=== PATIENT | male | born 1955 | race Caucasian/White ===

== ENCOUNTER → 2023-07-27 12:51 | Outpatient (REF) | payer MEDICARE, OTHER, SELFPAY | LOC: RAD 12:51 | PROVIDERS: ATTENDING PHYSICIAN Surgery Vascular Surgery; FAMILY PHYSICIAN Family Medicine | DX: I73.9 Peripheral vascular disease, unspecified (principal) | CPT/HCPCS: 93922; 93925 ==

== ENCOUNTER → 2023-12-06 08:39 | Outpatient (REF) | payer MEDICARE, OTHER, SELFPAY ==
[2023-12-06 11:08] LABS: % Basophils 0.6 % (0-2); % Eosinophils 1.8 % (0-6); % Immature Granulocytes 0.9 % (0-0.5); % Lymphocytes 18.5 % (20.5-51.1); % Monocytes 11.1 % (1.7-9.3); % Neutrophils 67.1 % (42.2-75.2); Absolute Basophils 0.1 10^3/uL (0-0.2); Absolute Eosinophils 0.2 10^3/uL (0-0.7); Absolute Immature Granulocytes 0.1 10^3/uL (0-0.05); Absolute Lymphocytes 1.6 10^3/uL (1.2-3.4); Absolute Neutrophils 5.8 10^3/uL (1.4-6.5); Hematocrit 42.9 % (39.0-52.0); Hemoglobin 14.5 g/dL (13.0-18.0); Mean Corp Hgb Conc. 33.8 g/dL (33.0-37.0); Mean Corpuscular Hgb 28.2 pg (27.0-31.0); Mean Corpuscular Volume 83.5 fL (80.0-94.0); Nucleated Red Blood Cells % 0 % (-); Platelet Count 264 10^3/uL (130-400); Red Blood Cell Count 5.14 10^6/uL (4.70-6.10); Red Cell Dist. Width 13.6 % (11.5-14.5); White Blood Cell Count 8.7 10^3/uL (4.8-10.8)
[2023-12-06 11:34] LABS: Blood Urea Nitrogen 16 mg/dl (9-20); Calcium 9.6 mg/dl (8.4-10.2); Carbon Dioxide 27 mmol/L (22-30); Chloride 99 mmol/L (98-107); Glucose 151 mg/dl (70-99); Potassium 4.7 mmol/L (3.5-5.1); Sodium 140 mmol/L (135-145); eGFR > 60.00
== END ==
LOC: SDSPAT 08:39
PROVIDERS: ATTENDING PHYSICIAN Podiatrist Foot & Ankle Surgery; FAMILY PHYSICIAN Family Medicine
DX: Z01.818 Encounter for other preprocedural examination (principal)
CPT/HCPCS: 36415; 73620; 80048; 85025; 93005

== ENCOUNTER 2023-12-08 06:53 | Day surgery (SDC) | payer MEDICARE, OTHER, SELFPAY ==
[2023-12-06 09:43] VITALS: BMI 31.5
[2023-12-08] VITALS (9 sets, daily range): BP systolic 117–142; BP diastolic 65–73; BMI 31.5
[2023-12-08 11:45] LABS: Glucose - Point of Care 190 mg/dl (70-99)
[2023-12-08] MEDS: NORMOSOL-R/PLASMALYTE-A 1000 IV (11:54)
--- NOTE | 2023-12-08 13:00 | W.SUR.POST ---
Surgical Immediate Post Op
Note
Pre Op Diagnosis: Right 3rd toe osteomyelitis
Post Op Diagnosis: Same as above
Procedure Performed: Rt partial 3rd toe amputation
Primary Surgeon: Dr. Rm DPM
Secondary Surgeons: None
Anesthesia: MAC with local block
Estimated Blood Loss: 2cc's
Fluids: None
Drains/Shunts: No
Specimens/Cultures: Aerobic and anaerobic cultures sent, Rt 3rd toe bone sent for pathology along with clean margins
Doppler/Duplex/Angio (Y/N): No
Complications: None
Operative Findings: There was decent blood flow to the surgical margins noted, no deep tissue purulence noted.
Patient stable in PACU with stable vital signs and intact vascular status to Rt foot,
PT will be discharged home when stable
[2023-12-08 13:01] LABS: Glucose - Point of Care 182 mg/dl (70-99)
== END 2023-12-08 14:11 | disposition home or self-care (01) ==
LOC: SDS 06:53
PROVIDERS: ATTENDING PHYSICIAN Podiatrist Foot & Ankle Surgery; FAMILY PHYSICIAN Family Medicine
DX: M86.9 Osteomyelitis, unspecified (principal)
CPT/HCPCS: 28825; 88304; 88305; 88311; 82962; 87070; 87075; 87076; 87077; 87186; 87205

== ENCOUNTER → 2023-12-27 09:16 | Outpatient (REF) | payer MEDICARE, OTHER, SELFPAY ==
[2023-12-27 11:06] LABS: Hematocrit 42.4 % (39.0-52.0); Hemoglobin 14.2 g/dL (13.0-18.0); Mean Corp Hgb Conc. 33.5 g/dL (33.0-37.0); Mean Corpuscular Hgb 28.7 pg (27.0-31.0); Mean Corpuscular Volume 85.8 fL (80.0-94.0); Mean Platelet Volume 9.4 fL (7.4-10.4); Platelet Count 220 10^3/uL (130-400); Red Blood Cell Count 4.94 10^6/uL (4.70-6.10); Red Cell Dist. Width 13.8 % (11.5-14.5); White Blood Cell Count 8.5 10^3/uL (4.8-10.8)
[2023-12-27 11:26] LABS: Blood Urea Nitrogen 18 mg/dl (9-20); Calcium 9.7 mg/dl (8.4-10.2); Carbon Dioxide 27 mmol/L (22-30); Chloride 101 mmol/L (98-107); Glucose 173 mg/dl (70-99); Potassium 4.9 mmol/L (3.5-5.1); Sodium 139 mmol/L (135-145); eGFR > 60.00
== END ==
LOC: SDSPAT 09:16
PROVIDERS: ATTENDING PHYSICIAN Podiatrist Foot & Ankle Surgery; FAMILY PHYSICIAN Family Medicine
DX: Z01.818 Encounter for other preprocedural examination (principal)
CPT/HCPCS: 36415; 73620; 80048; 85027

== ENCOUNTER 2023-12-29 06:32 | Day surgery (SDC) | payer MEDICARE, OTHER, SELFPAY ==
[2023-12-27 10:29] VITALS: BMI 32.9
[2023-12-29 11:07] VITALS: BP 119/73
[2023-12-29 11:12] VITALS: BMI 32.9
[2023-12-29 11:18] LABS: Glucose - Point of Care 141 mg/dl (70-99)
[2023-12-29 13:28] VITALS: BP 97/59
[2023-12-29 13:30] VITALS: BP 97/66
[2023-12-29 13:45] VITALS: BP 107/77
--- NOTE | 2023-12-29 13:54 | W.SUR.POST ---
Surgical Immediate Post Op
Note
Pre Op Diagnosis: Rt 3rd toe osteomyelitis
Post Op Diagnosis: Same as above
Procedure Performed: Right 3rd toe proximal amputation att he MPJ level
Primary Surgeon: Leisa Rm DPM
Secondary Surgeons: None
Anesthesia: MAC with local block
Estimated Blood Loss:10 CC'S
Fluids: None
Drains/Shunts: none
Specimens/Cultures: Bone form Rt 3rd toe proximal phalanx sent for pathology and culture
Doppler/Duplex/Angio (Y/N): None
Complications: none
Operative Findings: No deep tissue purulence noted
PT stable in recovery with intact vascular status to Rt foot and stbale vital signs
[2023-12-29 14:00] VITALS: BP 113/71
== END 2023-12-29 14:21 | disposition home or self-care (01) ==
LOC: SDS 06:32
PROVIDERS: ATTENDING PHYSICIAN Podiatrist Foot & Ankle Surgery
DX: M86.9 Osteomyelitis, unspecified (principal); M86.171 Other acute osteomyelitis, right ankle and foot
CPT/HCPCS: 28820; 88304; 88311; 82962

== ENCOUNTER → 2024-03-09 10:59 | Outpatient (REF) | payer MEDICARE, OTHER, SELFPAY | LOC: RAD 10:59 | PROVIDERS: ATTENDING PHYSICIAN Surgery Vascular Surgery; FAMILY PHYSICIAN Family Medicine | DX: I73.9 Peripheral vascular disease, unspecified (principal) | CPT/HCPCS: 93922; 93925 ==

== ENCOUNTER 2024-03-22 05:52 | Day surgery (SDC) | payer MEDICARE, OTHER, SELFPAY ==
[2024-03-20 09:03] VITALS: BMI 33.0
[2024-03-22] VITALS (15 sets, daily range): BP systolic 100–136; BP diastolic 61–105; BMI 32.7
[2024-03-22 06:55] LABS: Glucose - Point of Care 187 mg/dl (70-99)
--- NOTE | 2024-03-22 07:13 | W.SUR.PREOP ---
Pre-Operative Surgical Note
-
I have examined this patient prior to the performance of the scheduled procedure.
The patient's condition is unchanged from the time of the current History and
Physical and the patient is able to undergo the scheduled procedure.
Discussed extensively with patient plan for procedure (RLE agram, possible GATEKEEPER/stent, possible LLE agram). Discussed likelihood of limited revasc options RLE. Discussed if no options, potential of LimFlow revasc pending anatomy eval. Discussed
risks angiography, benefits/alternatives. He understands all and wishes to proceed.
--- NOTE | 2024-03-22 08:45 | W.SUR.POST ---
Surgical Immediate Post Op
Note
Pre Op Diagnosis: PAD
Post Op Diagnosis: PAD
Procedure Performed: Aortogram, bilateral lower extremity angiogram, angioplasty of right TP trunk
Primary Surgeon: Anand Silverio MD
Secondary Surgeons: N/A
Anesthesia: MAC
Estimated Blood Loss: 2 mL
Fluids: See anesthesia flowsheet
Drains/Shunts: N/A
Specimens/Cultures: None
Doppler/Duplex/Angio (Y/N): Y
Complications: None
Operative Findings: Successful endovascular intervention
--- NOTE | 2024-03-22 09:12 | OR.RPT ---
Operative Report
Operative Report
PROCEDURE DATE: 03/22/2024
Preoperative diagnosis:
1. Chronic limb threatening ischemia right lower extremity.
2. Concern for failing left lower extremity bypass.
Postoperative diagnosis: Same
Procedure:
1. Duplex assisted left common femoral artery cannulation.
2. Aortogram and pelvic angiogram.
3. Right lower extremity arteriogram with third order vessel catheterization of right tibioperoneal trunk via left common femoral artery puncture.
4. Balloon angioplasty of right tibioperoneal trunk with 4 mm angioplasty balloon.
5. Left lower extremity arteriogram.
6. [place] Perclose percutaneous suture closure left common femoral artery.
7. Supervision and interpretation.
Surgeon: Jean Claude
Inspecting Engineer: None
Complications: None
Anesthesia: Local, sedation
Fluoroscopy:
9.2 min
82 mGy
22.92 Gy.cm2
Indications for procedure:
Patient with nonhealing prior toe amputation site right lower extremity. History of right lower extremity bypass. This has been chronically occluded now. Limited revascularization options. Risk/benefits/alternatives of right lower extremity
angiogram with possible angioplasty/stenting all discussed. Discussed also concomitant left lower extremity diagnostic arteriogram based on screening ultrasound demonstrating very low flow in bypass graft left lower extremity. Patient understood
all wished to proceed.
Description of procedure:
Patient was identified, brought to the operating room. Placed on the table in the supine position. After the adequate administration of anesthesia, the patient was prepped and draped in the standard surgical fashion. A standard preoperative
timeout was undertaken and everybody was in agreement with the plan.
The left common femoral artery was accessed with a micropuncture kit under direct duplex ultrasound guidance. A 5 [place]rugu[place] sheath was then advanced over a 0.035 inch wire, and a andujar's hook catheter was advanced into the abdominal aorta.
Aortogram and pelvic angiogram was obtained. Findings as follows:
Infrarenal aorta: Patent with no significant stenosis
Right common iliac artery: Patent with no significant stenosis
Right external iliac artery:Patent with no significant stenosis
Left common iliac artery:Patent with no significant stenosis
Left external iliac artery:Patent with no significant stenosis
Using a floppy angled hydrophilic wire, the right common femoral artery was cannulated and the catheter was advanced. Right lower extremity arteriogram was obtained. Findings as follows:
Common femoral artery: Patent with no significant stenosis.
Profunda femoris artery: Patent with no significant stenosis though relatively weak collateralization in general.
Superficial femoral artery: Patent with mild luminal irregularities but no significant stenosis throughout its course. At the very distal superficial femoral artery the number of the old bypass graft could be seen but the bypass was chronically
occluded.
Popliteal artery: Patent with luminal irregularities but no definitive stenosis.
Anterior tibial artery: Occluded chronically
Tibial peroneal trunk: Patent with severe stenosis at its origin, string-like. The peroneal and posterior tibial arteries were occluded chronically. Robust collateralization was seen throughout the calf suggestive of chronic occlusive disease.
Most of these collaterals emanated from distal to the TP trunk.
There was a reconstituted collateral that was in proximity to the dorsalis pedis on the foot which primarily filled the foot. Could not definitively say this was not a slightly aberrant course of a dorsalis pedis.
At this point, I felt that there was not really great options here for revascularization, but given the robust collaterals from the TP trunk and its branches, I felt that potentially treating that severe stenosis may enhance flow through collaterals
to assist with potential healing. Therefore at this point I selectively cannulated the superficial femoral artery and then exchanged for an up and over a 5 [place] 70 cm sheath. The patient was given 6000 units of intravenous heparin. Then under
roadmap assisted guidance I used a flopping of hydrophilic wire and a CXI catheter was able to traverse the area of stenosis. I gained wire access into what was likely the origin of the posterior tibial artery. Next I used a 4 mm x 4 cm
angioplasty balloon and performed angioplasty of the stenosis. Completion angiogram demonstrated excellent result with no significant residual stenosis and good filling into the collaterals. At this point I felt that there is nothing else to
render endovascularly here. I withdrew my sheath to the left distal external iliac artery. Left femoral angiogram demonstrated good puncture in the left common femoral artery. The common femoral, profunda appeared patent with no definitive
stenosis. Superficial femoral artery had luminal irregularities but no significant stenoses. Some areas of plaque in the above-knee popliteal and behind knee popliteal artery resulted in may be mild stenoses but difficult to say exactly the degree
of stenosis. Below the knee the below-knee popliteal artery appeared to occlude. On delayed phase imaging there was reconstituted flow seen into an anterior tibial artery and there appeared to be a bypass that emanated from the anterior tibial
artery to the dorsalis pedis it looks like. There was flow into this despite a proximal occlusion in the inflow (in the anterior tibial artery proximally). No additional outflow was really seen in the calf or ankle. Possible weak filling of a
posterior tibial artery around the ankle was seen but could not definitively say this was not a collateral. At this point, I used a [employer] percutaneous Perclose suture delivery device after exchanging out the sheath to close the common femoral
artery. Gentle pressure was also applied. Hemostasis was fully achieved. The patient tolerated procedure well.
== END 2024-03-22 11:56 | disposition home or self-care (01) ==
LOC: CATH 05:52
PROVIDERS: ATTENDING PHYSICIAN Surgery Vascular Surgery; FAMILY PHYSICIAN Family Medicine
DX: I70.221 Atherosclerosis of native arteries of extremities with rest pain, right leg (principal); Z89.421 Acquired absence of other right toe(s); E11.9 Type 2 diabetes mellitus without complications; E78.5 Hyperlipidemia, unspecified; M72.2 Plantar fascial fibromatosis; Z79.4 Long term (current) use of insulin; Z79.899 Other long term (current) drug therapy; Z79.82 Long term (current) use of aspirin; Z79.84 Long term (current) use of oral hypoglycemic drugs; Z79.01 Long term (current) use of anticoagulants
CPT/HCPCS: 37228; 75625; 75716; 82962; C1725; C1760; C1769; C1894; Q9967

== ENCOUNTER → 2024-04-23 08:54 | Outpatient (REF) | payer MEDICARE, OTHER, SELFPAY | LOC: RAD 08:54 | PROVIDERS: ATTENDING PHYSICIAN Surgery Vascular Surgery; FAMILY PHYSICIAN Family Medicine | DX: I73.9 Peripheral vascular disease, unspecified (principal) | CPT/HCPCS: 93922; 93925 ==

== ENCOUNTER 2024-05-16 05:53 | Day surgery (SDC) | payer MEDICARE, OTHER, SELFPAY ==
[2024-05-16] VITALS (13 sets, daily range): BP systolic 14–135; BP diastolic 63–80; BMI 31.9
--- NOTE | 2024-05-16 06:35 | W.SUR.PREOP ---
Pre-Operative Surgical Note
-
I have examined this patient prior to the performance of the scheduled procedure.
The patient's condition is unchanged from the time of the current History and
Physical and the patient is able to undergo the scheduled procedure.
[2024-05-16] MEDS: NSS 500 IV (06:50)
[2024-05-16 07:11] LABS: Hematocrit 42.2 % (39.0-52.0); Hemoglobin 14.3 g/dL (13.0-18.0); Mean Corp Hgb Conc. 33.9 g/dL (33.0-37.0); Mean Corpuscular Hgb 28.1 pg (27.0-31.0); Mean Corpuscular Volume 82.9 fL (80.0-94.0); Mean Platelet Volume 8.7 fL (7.4-10.4); Platelet Count 236 10^3/uL (130-400); Red Blood Cell Count 5.09 10^6/uL (4.70-6.10); Red Cell Dist. Width 14.4 % (11.5-14.5)
[2024-05-16 07:24] LABS: Blood Urea Nitrogen 16 mg/dl (9-20); Calcium 9.2 mg/dl (8.4-10.2); Carbon Dioxide 29 mmol/L (22-30); Chloride 103 mmol/L (98-107); Estimated Creatinine Clearance 110 ml/min; Glucose 191 mg/dl (70-99); INR 1.06; PT 14.1 Sec (11.4-14.6); Potassium 4.5 mmol/L (3.5-5.1); Sodium 137 mmol/L (135-145); eGFR > 60.00
[2024-05-16 07:25] LABS: APTT 28.3 Sec (23.4-35.0)
--- NOTE | 2024-05-16 08:58 | W.SUR.POST ---
Surgical Immediate Post Op
Note
Pre Op Diagnosis: Gangrene
Post Op Diagnosis: Same
Procedure Performed: Left lower extremity diagnostic arteriogram
Primary Surgeon: Jean Claude
Anesthesia: Local and sedation
Estimated Blood Loss: Less than 2 cc
Fluids: See anesthesia flowsheet
Drains/Shunts: None
Specimens/Cultures: None
Doppler/Duplex/Angio (Y/N): Y
Complications: None
Operative Findings: No endovascular options
[2024-05-16 09:37] LABS: Glucose - Point of Care 186 mg/dl (70-99)
[2024-05-16] MEDS: NSS 1000 IV (09:58)
--- NOTE | 2024-05-16 10:12 | OR.RPT ---
Operative Report
Operative Report
PROCEDURE DATE: 05/16/2024
Preoperative diagnosis:
1. Chronic limb threatening ischemia left lower extremity with gangrene left second toe.
2. History of left lower extremity arterial bypass.
Postoperative diagnosis: Same
Procedure:
1. Duplex assisted right common femoral artery cannulation.
2. Aortogram and pelvic angiogram.
3. Left lower extremity arteriogram with third order vessel catheterization of left popliteal artery via right common femoral artery puncture.
4. Supervision and interpretation.
Surgeon: Jean Claude
Breakfast Hostess: None
Complications: None
Anesthesia: Local, sedation
Fluoroscopy:
12.3 min
116 mGy
35.21 Gy.cm2
Indications for procedure:
History of chronic peripheral arterial disease. Prior bypass to (infrapopliteal, prior to my meeting him). Recent imaging had demonstrated occlusion of the anterior tibial artery proximal to the bypass origin. Had gangrene in the left foot.
Therefore brought for angiography. Risk/benefit/alternatives also discussed. Patient understood all wished to proceed.
Description of procedure:
Patient was identified, brought to the operating room. Placed on the table in the supine position. After the adequate administration of anesthesia, the patient was prepped and draped in the standard surgical fashion. A standard preoperative
timeout was undertaken and everybody was in agreement with the plan.
The right common femoral artery was accessed with a micropuncture kit under direct duplex ultrasound guidance. A 5 Sammarinese sheath was then advanced over a 0.035 inch wire, and a andujar's hook catheter was advanced into the abdominal aorta.
Aortogram and pelvic angiogram was obtained. Findings as follows:
Infrarenal aorta: Patent with no significant stenosis
Right common iliac artery: Patent with no significant stenosis
Right external iliac artery: Patent with no significant stenosis
Left common iliac artery: Patent with no significant stenosis
Left external iliac artery: Patent with no significant stenosis
Using a floppy angled hydrophilic wire, the left common femoral artery was cannulated and the catheter was advanced. Left lower extremity arteriogram was obtained. Findings as follows:
Common femoral artery: Patent with no significant stenosis
Profunda femoris artery: Patent with no significant stenosis
Superficial femoral artery: Patent with mild luminal irregularity proximally but no significant stenosis. In the mid segment, luminal irregularities are noted, but no severe stenosis in the proximal third. At the midpoint of the SFA there is a
focal plaque with likely moderate stenosis. In the distal SFA just proximal to emerging from the adductor canal, there is a heavy plaque likely resulting in a moderate to severe stenosis.
Popliteal artery: Patent with heavy bulky plaque behind the knee resulting likely in a moderate to high-grade stenosis. There is a bulky plaque that extends from the below-knee popliteal artery into the tibioperoneal trunk. The anterior tibial
artery origin is occluded.
Anterior tibial artery: Occluded at the origin. About 2 to 3 cm beyond the origin there is reconstitution. About 8 to 10 cm beyond there there is a mild stenosis but nothing severe. Patent bypass originating from the mid anterior tibial artery.
Patent distal anastomosis but relatively poor runoff in the dorsalis pedis. Very diseased dorsalis pedis infra malleoli or runoff. Pedal arch could be seen but weakly filling.
Tibial peroneal trunk: Severe bulky plaque originating in the popliteal artery spilling into the tibioperoneal trunk causing near occlusion proximally. Otherwise the tibioperoneal trunk is patent beyond there with luminal irregularities, but both
the peroneal and posterior tibial arteries are occluded.
At this point, I gained selective access into the left superficial femoral artery with a flopping of hydrophilic wire and then exchanged for a Stor[employer] wire and then up and over 6 Sammarinese sheath. The patient was given 7000 units of intravenous heparin.
Next under roadmap assisted guidance using a flopping of hydrophilic wire and a CXI catheter was able to traverse through the popliteal artery stenosis, but proved to be difficult due to the bulkiness of the plaque. I was able to however
successfully traverse and then gain access into the below the knee popliteal artery. Under roadmap assisted guidance I tried to engage the origin of the anterior tibial artery, but despite multiple attempts I could not get into the anterior tibial
artery due to the bulkiness of the proximal plaque. At this point I felt that there is no further endovascular interventions to render. I did not feel that retrograde access would be ideal given the bulkiness of this plaque, and the risk for
occluding the single distal runoff vessel/bypass. At this point my sheath was withdrawn to the right distal external iliac artery. Femoral angiogram demonstrated good puncture in the right common femoral artery. Initially I tried to utilize a
percutaneous suture [place] Perclose device. However this failed. Therefore I reinserted the wire and remove the delivery device. I exchanged back for 6 Sammarinese sheath and remove the wire. Performed angiogram to confirm no injury to the artery.
Confirm no issue. At this point, the sheath was withdrawn and manual pressure was applied to the puncture site. Protamine was given to reverse the heparin. Hemostasis was fully achieved. Vein mapping will be performed to see if the patient could
potentially be a bypass candidate though due to prior vein harvest this may not be a guarantee, and given disease runoff inframalleolar may not be an ideal fix.
The patient tolerated procedure well.
[2024-05-16 13:53] LABS: Glucose - Point of Care 155 mg/dl (70-99)
--- NOTE | 2024-05-16 13:59 | PTCARENOTE ---
Pt refusing to take ordered dose of 2 units of novolog SQ for accucheck of 155. States 'my sugar will drop too low'. Pt encouraged to eat and drink something but also refusing that- states 'I'll do all of that when I get home.'
== END 2024-05-16 15:15 | disposition home or self-care (01) ==
LOC: CATH 05:53
PROVIDERS: ATTENDING PHYSICIAN Surgery Vascular Surgery; PRIMARYCARE PHYSICIAN Family Medicine
DX: I70.262 Atherosclerosis of native arteries of extremities with gangrene, left leg (principal); L97.529 Non-pressure chronic ulcer of other part of left foot with unspecified severity; Z79.82 Long term (current) use of aspirin; Z79.899 Other long term (current) drug therapy; Z79.84 Long term (current) use of oral hypoglycemic drugs; Z79.4 Long term (current) use of insulin; Z79.01 Long term (current) use of anticoagulants; E11.9 Type 2 diabetes mellitus without complications; E78.5 Hyperlipidemia, unspecified; Z98.890 Other specified postprocedural states
CPT/HCPCS: 36247; 75625; 75716; 80048; 82962; 85027; 85610; 85730; 86850; 86900; 86901; 93970; C1760; C1769; C1887; C1894; Q9967

== ENCOUNTER 2024-07-09 07:42 | Inpatient (IN) | payer MEDICARE, OTHER, SELFPAY ==
[2024-07-04 09:02] VITALS: BMI 31.6
[2024-07-04 09:49] LABS: % Basophils 0.7 % (0-2); % Eosinophils 1.9 % (0-6); % Immature Granulocytes 0.8 % (0-0.5); % Lymphocytes 15.7 % (20.5-51.1); % Monocytes 9.7 % (1.7-9.3); % Neutrophils 71.2 % (42.2-75.2); Absolute Basophils 0.1 10^3/uL (0-0.2); Absolute Eosinophils 0.2 10^3/uL (0-0.7); Absolute Immature Granulocytes 0.1 10^3/uL (0-0.05); Absolute Lymphocytes 1.4 10^3/uL (1.2-3.4); Absolute Monocytes 0.9 10^3/uL (0.1-0.6); Absolute Neutrophils 6.4 10^3/uL (1.4-6.5); Hematocrit 45.2 % (39.0-52.0); Hemoglobin 15.3 g/dL (13.0-18.0); Mean Corp Hgb Conc. 33.8 g/dL (33.0-37.0); Mean Corpuscular Hgb 28.5 pg (27.0-31.0); Mean Corpuscular Volume 84.2 fL (80.0-94.0); Mean Platelet Volume 9.2 fL (7.4-10.4); Nucleated Red Blood Cells % 0 % (-); Platelet Count 236 10^3/uL (130-400); Red Blood Cell Count 5.37 10^6/uL (4.70-6.10); Red Cell Dist. Width 14.6 % (11.5-14.5); White Blood Cell Count 8.9 10^3/uL (4.8-10.8)
[2024-07-04 09:57] LABS: INR 1.05; PT 14.2 Sec (11.4-14.6)
[2024-07-04 09:58] LABS: APTT 26.7 Sec (23.4-35.0)
[2024-07-04 10:31] LABS: Blood Urea Nitrogen 14 mg/dl (9-20); Calcium 9.5 mg/dl (8.4-10.2); Carbon Dioxide 25 mmol/L (22-30); Chloride 105 mmol/L (98-107); Estimated Creatinine Clearance 97 ml/min; Glucose 157 mg/dl (70-99); Potassium 4.6 mmol/L (3.5-5.1); Sodium 143 mmol/L (135-145); eGFR > 60.00
--- NOTE | 2024-07-05 13:06 | PTCARENOTE ---
Abnormal ECG 07/04/[address] Garcia, no further interventions requested.
[2024-07-09] VITALS (7 sets, daily range): BP systolic 122–153; BP diastolic 68–80; BMI 31.5
[2024-07-09] MEDS: PERIDEX 0.12% ORAL RINSE 15 ML PO (08:40)
[2024-07-09] MEDS: BACTROBAN NASAL 1 GRAM NASAL (08:40)
[2024-07-09 08:43] LABS: Glucose - Point of Care 187 mg/dl (70-99)
[2024-07-09 11:24] LABS: Glucose - Point of Care 174 mg/dl (70-99)
[2024-07-09 14:01] LABS: Glucose - Point of Care 205 mg/dl (70-99)
[2024-07-09 15:25] LABS: Glucose - Point of Care 151 mg/dl (70-99)
[2024-07-09 15:32] LABS: Hematocrit 41.5 % (39.0-52.0); Hemoglobin 13.8 g/dL (13.0-18.0); Mean Corp Hgb Conc. 33.3 g/dL (33.0-37.0); Mean Corpuscular Hgb 28.2 pg (27.0-31.0); Mean Corpuscular Volume 84.9 fL (80.0-94.0); Mean Platelet Volume 9.1 fL (7.4-10.4); Platelet Count 247 10^3/uL (130-400); Red Blood Cell Count 4.89 10^6/uL (4.70-6.10); Red Cell Dist. Width 14.3 % (11.5-14.5); White Blood Cell Count 19.3 10^3/uL (4.8-10.8)
[2024-07-09 15:51] LABS: Blood Urea Nitrogen 14 mg/dl (9-20); Calcium 8.1 mg/dl (8.4-10.2); Carbon Dioxide 21 mmol/L (22-30); Chloride 111 mmol/L (98-107); Estimated Creatinine Clearance 111 ml/min; Glucose 241 mg/dl (70-99); Potassium 5.3 mmol/L (3.5-5.1); Sodium 137 mmol/L (135-145); eGFR > 60.00
--- NOTE | 2024-07-09 16:02 | CON.INTV ---
Consultation
Consultation Request
Date/Time Consultation Requested: 07/09/2024 - 150
Date/Time Consultation Performed: 07/09/2024 - 153
Requesting Provider: VALARIE Gale
Performing Provider: Dr. Bueno
Reason for Consultation: Vascular surgery due to PAD
Medical History
-
Chief Complaint: Elective left lower extremity bypass graft
History of Present Illness:
69-year-old male with a past medical history of PAD, DM type II, hyperlipidemia and plantar fasciitis who presents for elective left lower extremity jump bypass graft from below�knee popliteal artery to distal anterior tibial artery bypass graft.
Patient known to vascular surgery with last visit 06/22/[address] Silverio. Given patient's significant PAD, he has risk of limb loss with gangrene. He has poor outflow from his distal bypass graft into his dorsalis pedis artery. Revascularization
with a jump bypass was recommended and patient agreed to this procedure. Today, patient underwent a left lower extremity jump bypass graft from below�knee popliteal artery to distal anterior tibial artery bypass graft. Estimated blood loss was 200
cc with no complications, and he was transferred to the ICU postoperatively with [employer] services consulted for additional management/recommendations.
When I saw the patient, he was resting in bed in no acute distress. Currently on room air breathing comfortably saturating 95% with heart rate 108 and BP 178/82 via A-line, 133/78 via NIBP. Currently denies chest pain, LING, nausea, fevers or chills.
PMHx: DM type II, hyperlipidemia, history of right leg bypass, PAD, plantar fasciitis
PSHx: Partial amputation of right hallux, right lower extremity arteriogram, right SFA to distal peroneal artery bypass with LUE cephalic vein conduit, right second toe amputation with right medial foot excision of bone, cataract surgery, right
partial fifth toe amputation, left lower extremity arteriogram + balloon angioplasty, right third toe proximal amputation
Past Medical History
Past Medical History: Other (Above as per HPI)
Past Surgical History: Other (Above as per HPI)
Social History
Tobacco: Non-smoker
Alcohol: None
Drug: None
Family History
Family History: Reviewed & Not Pertinent
Allergies / Home Medications
Allergies
Allergy/AdvReac Type Severity Reaction Status Date / Time
No Known Allergies Allergy Verified 07/09/24 08:25
Home Medications
�Medication �Instructions �Recorded �Confirmed �Last Taken �Type
aspirin 81 mg chewable tablet 81 mg PO NOON Blood clot 11/11/20 07/09/24 07/08/24 12:00 History
prevention/tx
gabapentin 300 mg capsule 300 mg PO TID Neurological 11/11/20 07/09/24 07/08/24 17:00 History
Condition
insulin lispro 100 unit/mL 40 units SC AC Diabetes 11/11/20 07/09/24 07/08/24 17:00 History
subcutaneous pen (Humalog KwikPen
(U-100) Insulin)
metoprolol succinate 25 mg 25 mg PO DAILY Heart 11/11/20 07/09/24 07/08/24 12:00 History
tablet,extended release 24 hr disease/condition
insulin glargine 100 unit/mL (3 40 units SC HS 12/22/20 07/09/24 07/08/24 21:00 History
mL) subcutaneous pen (Lantus
Solostar U-100 Insulin)
cholecalciferol (vitamin D3) 50 2,000 units PO NOON 12/24/20 07/09/24 07/08/24 12:00 History
mcg (2,000 unit) tablet
lisinopril 10 mg tablet 10 mg PO DAILY Blood pressure 11/11/21 07/09/24 07/08/24 12:00 History
ascorbic acid (vitamin C) 500 mg 500 mg PO BID 12/07/23 07/09/24 07/08/24 21:00 History
tablet (Vitamin C)
atorvastatin 80 mg tablet 80 mg PO DAILY 12/07/23 07/09/24 07/08/24 12:00 History
ezetimibe 10 mg tablet 10 mg PO DAILY 12/07/23 07/09/24 07/08/24 12:00 History
zinc acetate 50 mg (zinc) capsule 50 mg PO NOON 12/07/23 07/09/24 07/08/24 12:00 History
blood sugar diagnostic 05/16/24 07/09/24 Unknown History
pen needle, diabetic 29 gauge x 05/16/24 07/09/24 Unknown History
1/2'
metformin 1,000 mg tablet 1,000 mg PO DAILY Diabetes 07/09/24 07/09/24 07/08/24 12:00 History
Review of Systems
-
History Source: Patient
All other systems: Negative unless noted
Vitals / Labs / Diagnostic Testing
Vital Signs
Temp Pulse Resp BP Pulse Ox
97.6 F 96 17 133/78 95
07/09/24 16:56 07/09/24 17:00 07/09/24 17:00 07/09/24 16:30 07/09/24 17:00
Lab Data
07/09/24 15:25
07/09/24 15:25
Diagnostic Testing:
Physical Exam
-
HEENT: Normocephalic and Anicteric
Cardiovascular: S1/S2, Rub (n) and Peripheral Edema (n)
Respiratory: Wheeze (n), Rales (n), Rhonchi (n) and Non-Labored Respirations
GI: Soft, Non Distended, Non Tender and Normal Bowel Sounds
Neurology: AO x 3
Skin: Warm, Dry, Other (Multiple toe amputations seen on the right foot) and Other (Bandage on right upper extremity with mild oozing of blood seen in proximal RUE)
General: Respiratory Distress (n), Comfortable, Fever (n) and Chills (n)
Assessment
-
Assessment: 69-year-old male with a past medical history of PAD, DM type II, hyperlipidemia and plantar fasciitis who presents for elective left lower extremity jump bypass graft from below�knee popliteal artery to distal anterior tibial artery
bypass graft. Patient known to vascular surgery with last visit 06/22/[address] Silverio. Given patient's significant PAD, he has risk of limb loss with gangrene. He has poor outflow from his distal bypass graft into his dorsalis pedis artery.
Revascularization with a jump bypass was recommended and patient agreed to this procedure. Today, patient underwent a left lower extremity jump bypass graft from below�knee popliteal artery to distal anterior tibial artery bypass graft. Estimated
blood loss was 200 cc with no complications, and he was transferred to the ICU postoperatively with [employer] services consulted for additional management/recommendations.
Chronic conditions [employer]: DM type II, hyperlipidemia, history of right leg bypass, PAD, plantar fasciitis
Impression:
#Critical limb ischemia s/p left lower extremity jump bypass graft from below�knee popliteal artery to distal anterior tibial artery bypass graft (POD #0)
#Leukocytosis likely reactive
#Mild hyperkalemia
#DM type II complicated by hyperglycemia
#Hyperlipidemia
#PAD with history of right leg bypass
Plan:
Postoperative surgical intensive care unit monitoring
Supplemental oxygen as needed to maintain SpO2 >90-94%
prn nebulized bronchodilators
Incentive spirometry encouraged 10x per hour for at least 4 hrs a day
Aspiration precautions
Pain control
Neuro and vascular checks per protocol
Maintain MAP>65
Replete electrolytes with K>4, Mg>2
Maintain euglycemia with goal BG 140-180; recheck HbA1c
Vascular surgery following-correspondence and operative notes reviewed
Transfuse blood products as needed to keep Hb>7g/dL, and plt>50k (given post-operative status)
DVT prophylaxis
Early nutrition
Early mobilization
Critical care statement: A total of 44 minutes of critical care time was provided for this patient today. This includes management of unstable vital signs, evaluation of the patient at bedside, reviewing the patient's pertinent medical records
including radiographs, microbiology, laboratory evaluations, and discussion with primary team, consultants, pharmacy, nutrition, physical therapy, case management, charge nurse, critical care nursing, and respiratory therapy.
[2024-07-09] MEDS: NEURONTIN 300 MG PO ×2 (17:01→21:22)
[2024-07-09] MEDS: NSS 1000 IV (17:01)
[2024-07-09 17:19] LABS: Glucose - Point of Care 264 mg/dl (70-99)
--- NOTE | 2024-07-09 17:37 | W.SUR.POST ---
Surgical Immediate Post Op
Note
Pre Op Diagnosis: Critical limb ischemia
Post Op Diagnosis: Same
Procedure Performed: Left lower extremity jump bypass graft from below-knee popliteal artery to distal AT artery bypass graft
Primary Surgeon: Jean Claude
Police Justice: Alexandre SHEPPARD
Anesthesia: General
Estimated Blood Loss: 200 cc
Fluids: See anesthesia flowsheet
Drains/Shunts: None
Specimens/Cultures: none
Doppler/Duplex/Angio (Y/N): Yes
Complications: None
Operative Findings: Palpable pulse of the ankle
[2024-07-09] MEDS: NOVOLOG FLEXPEN-HIGH RESISTANCE 7 UNITS SC (17:42)
[2024-07-09 17:54] LABS: Glucose - Point of Care 257 mg/dl (70-99)
--- NOTE | 2024-07-09 18:01 | OR.RPT ---
Operative Report
Operative Report
PROCEDURE DATE: 07/09/2024
Preoperative diagnosis:
1. Chronic limb threatening ischemia left lower extremity.
2. History of anterior tibial artery to dorsalis pedis artery bypass left lower extremity. (Prior to my meeting him).
Postoperative diagnosis: Same
Procedure:
1. Exposure of left lower extremity below the knee popliteal artery and proximal anterior tibial artery.
2. Left lower extremity jump bypass from left below the knee popliteal artery to distal anterior tibial artery bypass graft using right upper extremity harvested basilic vein reversed conduit.
3. Dissection through scarred tissue distal lateral left calf.
Surgeon: Jean Claude
Power Superintendent: ADELA Schroeder, required for all aspects of procedure including assistance with traction/countertraction, following suture line, assistance with closure.
Complications: None
Anesthesia: General
Indications for procedure:
Chronic limb threatening ischemia left lower extremity. History of left lower extremity bypass. The origin of the anterior tibial artery was occluded, and then reconstituted proximal to the bypass graft. I was hoping to for just short segment
bypass from the below-knee popliteal artery to the proximal anterior tibial artery beyond the area of occlusion. Discussed this all with the patient. He did have disease in the distal SFA and popliteal artery, but pulsatile flow was noted and no
significant stenosis on ultrasound. In addition he had very limited conduit. And the only way to do this would be with venous conduit as prosthetic would most likely fail. Risk/benefits/alternatives all fully discussed with patient. He
understood all wished proceed.
Description of procedure:
Patient was identified brought to the operating room placed on the table in supine position. After the adequate administration of anesthesia he was prepped and draped in the standard surgical fashion. A standard preoperative timeout was undertaken
and everybody was in agreement the plan. A longitudinal incision was made in the medial proximal left calf about 1 fingerbreadth inferior to the tibia. With the electrocautery this was carried through skin subcutaneous tissue and then through the
crural fascia layer. The gastrocnemius muscle was reflected posteriorly. And the loose areolar tissue of the popliteal vein and the popliteal artery were identified. I carefully dissected the popliteal artery away from surrounding structures and
great care to avoid any injury to the structures. There is noted to be pulsatile and softer proximally. More distally was noted to be heavy with plaque. Vesseloops were passed around it proximally and distally.
Now I made a longitudinal incision in the proximal anterior lateral calf. This was carried through skin subcutaneous tissue with the electrocautery. I then dissected through the crural fascia layer with the electrocautery. I then split the
bellies of the muscles in the anterior compartment and then placed a self-retaining retractor. The anterior tibial artery was palpated and was noted to be severely calcified and hardened, not amenable to clamping and sewing. I continued to extend
my incision more distally to explore the vessel more so. However it was very hard and to palpation throughout. I did dissect the vessel throughout this course and noted that there was no soft spot amenable to clamping and sewing. Therefore at
this point I did not feel that bypassing to the proximal anterior tibial artery was feasible.
Therefore at this point I made a longitudinal incision overlying the bypass graft just beyond the anastomosis (this was actually in the distal third of the calf, it was a very distal originating bypass). I then dissected through scar tissue in the
subcutaneous tissues to expose the bypass graft. However I was able to identify the bypass graft and carefully dissected circumferentially and passed a vessel loop around it. Doppler confirmed patency of the graft.
At this point I then incised carefully the interosseous membrane to create a connection between the deep posterior compartment and the anterior compartment. I then passed a aortic clamp and then a umbilical tape.
Now I made an incision in the right upper extremity where I had marked the basilic vein which was the only suitable vein he had remaining for conduit. This was made in the right medial upper arm. It was carried through the skin that we can
incision with electrocautery. I then identified the basilic vein in the subcutaneous tissues. I carefully then began to dissected from the distal upper arm all the way to the axillary region. The median antebrachial cutaneous nerve was currently
identified and great care was taken avoid any injury to the nerve. I dissected the vein all the way to the level of the axilla. There were couple connections to the deep venous system that were ligated between silk ties and then divided. Any
other branches were then ligated between silk ties and divided as well. As such I was able to mobilize the entirety of the vein out of the bed. I approached the antecubital fossa and the vein became much smaller and now did not appear to be
suitable. Therefore I now ligated the vein here with a heavy silk tie and a clip and transected. I then ligated near the axilla with a heavy silk tie and a clip. I then transected it here as well. I untethered it from the medial antebrachial
cutaneous nerve. Now we distended the vein under heparinized saline. Distended well. Initially I was hoping to maintain the vein nonreversed. However the vein was very thinned and I did not wish to valvulotomize it. I initially began to, but 1
small segment of the vein wall had a small tear in it which I had to repair with 6-0 Prolene suture. Therefore I felt that instead I would just reverse the vein as there was not a great size mismatch.
At this point I gave the patient 7008 symmetries heparin. Once this had circulated I then clamped the below the knee popliteal artery proximally and then tightened my doubly vessel loop distally. Arteriotomy was made with 11 blade and extended
using a Kirby scissor. There was some plaque still in the wall but the lumen was generally grossly patent without significant stenosis. I therefore then spatulated the vein again maintaining it in a reversed fashion. I then sewed an end-to-side
anastomosis with a running 6-0 Prolene suture. Prior to completing and tying down my suture line I backbled the [place] arteries and then completed and tied in my suture line. Next I placed a bulldog clamp on the vein graft and then released flow
in the [place] artery system. There is good pulsatile flow in the vein graft now. I marked the anterior surface under distention to avoid any kinking or twisting and then passed it through the tunnel that went through the interosseous membrane. I
then was planning to do a subcutaneous tunnel to the distal site where I had exposed the bypass graft. However I realized that I did not have enough vein length. Unfortunately I had harvested all the vein length that I could. Therefore at this
point I extended the incision where I exposed the prior bypass graft more proximally and connected it with the anterior tibial artery exposure incision. I now continues to dissect the bypass graft through scar tissue until I get down to just about
the anastomosis. Now I had enough mobilization. I ligated the old bypass graft just beyond the anastomosis with a heavy silk tie and a clip. I then transected it. I had good backbleeding. The vein wall was a little bit thickened but the lumen
was generally patent. At this point I then was able to tunnel the new bypass graft to this location subcutaneous/submuscularly. Excellent pulsatile flow was noted and no kinking or twisting was noted. I placed a bulldog clamp on the old and the
new bypass graft. I then spatulated the old bypass graft so that would size match the new bypass graft better. I then sewed an end-to-end anastomosis using a running 6-0 Prolene suture. Prior to completing and tying down the suture line I
backbled the [place] artery/old bypass graft as well as the new bypass graft. I flushed heparinized saline and then released my bulldog clamps after tying down the suture line. There is now pulsatile excellent flow through the bypass graft. A
couple 6-0 Prolene [id number] type sutures were placed along the suture line for hemostasis. Now had excellent distal pulsatile flow in the bypass graft. Doppler confirmed excellent Doppler signals that were graft dependent. At this point I
was very satisfied.
Protamine was now given to reverse the heparin. All incision sites were carefully assessed and hemostasis was fully achieved. The arm/right upper extremity incision was closed in layers using 3-0 Vicryl followed by 4 Monocryl subcuticular stitch
and Dermabond was placed. The medial calf incision was closed with 3-0 Vicryl and skin clips. The lateral proximal portion of the incision was closed with 3-0 Vicryl followed by skin clips. Distally we used 4-0 vertical mattress nylon suture
given the titer skin and the bypass graft being relatively superficial. Dressings were applied. All sponge, needle, instrument counts were correct at the end of the case. The patient tolerated procedure well.
--- NOTE | 2024-07-09 18:20 | PTCARENOTE ---
Rec'd patient from PACU at 1615. Patient alert and oriented. MAEx4. LLE neurovascular check wnl. [place], warm. Sensation unchanged from baseline (hx neuropathy). Palpable dp pulse. NSR with BBB and pvcs on tele. Lung sounds diminished in b/l base.
Pulse ox 93-95% on RA. +BS. Tolerating CLD. Gleason in place for critical I/O. Left medial and left lateral calf sites with CLARIBEL drains. Left lateral CLARIBEL dressing with increased drainage, as well as, right arm site. Dr. Silverio at bedside. RN advised
that right arm dressing may be reinforced and to avoid removing CLARIBEL dressing from left leg if possible. VSS. Left radial transduced and zeroed. Correlating with bp cuff.
--- NOTE | 2024-07-09 18:34 | PTCARENOTE ---
Vascular CYLINDER GRINDER at bedside to change left lateral CLARIBEL dressing.
--- NOTE | 2024-07-09 20:44 | PTCARENOTE ---
Assumed care of pt at 1900. Pt is A/O x4, pleasant and cooperative with care. Denies any pain so far. Neurovascular checks done in tandem with offgoing RN and are ongoing Q1 hour. See post angiography/cath flowsheet on worklist for details. SR 80s
on monitor with BBB noted. SpO2 93-94% on RA. CHG cloth bath done and linens/gown changed, jane care done. Pt able to change his position in bed and was educated on doing so throughout the night to prevent skin breakdown. Call doran and personal
items within reach.
[2024-07-09 21:01] LABS: Glucose - Point of Care 316 mg/dl (70-99)
[2024-07-09] MEDS: HEPARIN 5000 UNITS SC (21:22)
[2024-07-09] MEDS: LANTUS 0.4 UNITS SC (21:22)
[2024-07-09] MEDS: VITAMIN C 500 MG PO (21:22)
[2024-07-09] MEDS: NOVOLOG FLEXPEN 10 UNITS SC (21:26)
[2024-07-10] VITALS (14 sets, daily range): BP systolic 89–150; BP diastolic 59–80; BMI 31.9
--- NOTE | 2024-07-10 00:18 | PTCARENOTE ---
Assessment unchanged, neurovascular checks/surgical site checks ongoing. Left lateral CLARIBEL dressing continues with sanguinous drainage, slightly more noted with each hourly check, although with midnight check the drsg looked the same as previous
assessment at 2300. Drainage is contained to the CLARIBEL dressing. See post angiography/cath flowsheet on worklist for further details. SR 80s on monitor. SpO2 93% on RA.
[2024-07-10 02:03] LABS: Glucose - Point of Care 225 mg/dl (70-99)
[2024-07-10] MEDS: NOVOLOG FLEXPEN 4 UNITS SC (02:11)
[2024-07-10 03:33] LABS: Hematocrit 36.6 % (39.0-52.0); Hemoglobin 12.5 g/dL (13.0-18.0); Mean Corp Hgb Conc. 34.2 g/dL (33.0-37.0); Mean Corpuscular Hgb 28.4 pg (27.0-31.0); Mean Corpuscular Volume 83.2 fL (80.0-94.0); Platelet Count 198 10^3/uL (130-400); Red Cell Dist. Width 14.2 % (11.5-14.5); White Blood Cell Count 9.8 10^3/uL (4.8-10.8)
[2024-07-10 03:44] LABS: INR 1.09; PT 14.4 Sec (11.4-14.6)
[2024-07-10 03:45] LABS: APTT 27.1 Sec (23.4-35.0)
[2024-07-10 03:57] LABS: Blood Urea Nitrogen 14 mg/dl (9-20); Calcium 8.6 mg/dl (8.4-10.2); Carbon Dioxide 23 mmol/L (22-30); Chloride 109 mmol/L (98-107); Estimated Creatinine Clearance > 125 ml/min; Glucose 234 mg/dl (70-99); Potassium 4.8 mmol/L (3.5-5.1); Sodium 137 mmol/L (135-145); eGFR > 60.00
[2024-07-10] MEDS: NSS 1000 IV (04:07)
--- NOTE | 2024-07-10 07:30 | PTCARENOTE ---
Received patient A&Ox4, on RA, left radial art line, Gleason in place, RUE KEHINDE dressing and LLE CLARIBEL dressings x2 intact, denied pain throughout.
--- NOTE | 2024-07-10 08:05 | W.PN.VS ---
Addendum entered and electronically signed by Rodrigo Gleason III, MD 07/10/24 17:27:
This patient was seen and examined in collaboration with VALARIE Yip. I agree with the history and physical exam as well as the assessment and plan.
Signed:
Rodrigo Gleason III, MD
Vascular Surgery
[facility]
Original Note:
Today's Communication / Plan
-
See below.
Assessment/Plan
-
Assessment: 69-year-old male POD #1 Exposure of left lower extremity below the knee popliteal artery and proximal anterior tibial artery, left lower extremity jump bypass from left below the knee popliteal artery to distal anterior tibial artery
bypass graft using right upper extremity harvested basilic vein reversed conduit, dissection through scarred tissue distal lateral left calf
Plan:
Discontinue arterial line
Discontinue IV fluids
OOB to chair
Insulin-dependent diabetic, high risk for wound healing following bypass and continued nonhealing distal wounds, requesting aid of insulin management with diabetic nurse practitioner given desire for tight control in the healing process
Discontinue Gleason catheter
Can continue Brandon wrap to right upper extremity per patient comfort or can leave open to air
Continue neurovascular checks
Continue to encourage incentive spirometry
Continue ICU level care today
DVT prophylaxis
GI prophylaxis
Subjective Data
-
Date of Service: July 10, 2024
Patient seen and examined at bedside, offers no complaints. Reports well-managed postoperative pain. Denies nausea, vomiting, fever, and chills.
Objective Data
-
Vital Signs
Temp Pulse Resp BP Pulse Ox
97.8 F 98 19 133/78 95
07/10/24 03:05 07/10/24 06:00 07/10/24 06:00 07/09/24 16:30 07/10/24 06:00
Intake and Output
07/09/24 07/10/24 07/11/24
06:59 06:59 06:59
Intake Total 2079
Output Total 2604
Balance -525 / -525
Intake:
Oral fluids 960 / 960
IV fluids (Total) 1119
Nss 1,000 ml @ 80 mls/hr IV . 1119
[id number] [facility] Rx#:[id number]
Output:
Urine, Gleason 2604
Lab Results
07/10/24 03:21
07/10/24 03:21
Calcium 8.6 mg/dl (8.4-10.2) 07/10/24 03:21
Physical Exam
-
No apparent distress, resting in bed comfortably
No tachycardia
No dyspnea on room air
ABD rotund, nondistended, nontender
Right upper extremity vein harvest site CDI, no evidence of hematoma, suture line approximated and Exofin glue intact
Left lower extremity with scant edema, foot warm, excellent DP and PT Doppler signal, calf roslava dressing x 2 dry and intact, all compartments soft, no evidence of hematoma, moderate staining to distal rosalva dressing unchanged from postop
Bilateral feet warm
Gleason draining clear yellow urine
[2024-07-10 08:06] LABS: Glucose - Point of Care 232 mg/dl (70-99)
[2024-07-10] MEDS: NOVOLOG FLEXPEN-HIGH RESISTANCE 4 UNITS SC (08:19)
--- NOTE | 2024-07-10 08:27 | W.PN.INTV ---
Today's Communication / Plan
Recommendations
Pain control
Up OOB as tolerated
Encourage incentive spirometer
Keep SpO2 >90-94%
Trend H&H and keep >7 g/dL; plt>50k
Continue ICU level care per vascular surgery as he still requires q1hr neurovascular checks. Once transferred to telemetry or being prepared for discharge home, then we will sign off at that time.
Assessment
-
Assessment: 69-year-old male with a past medical history of PAD, DM type II, hyperlipidemia and plantar fasciitis who presents for elective left lower extremity jump bypass graft from below�knee popliteal artery to distal anterior tibial artery
bypass graft. Patient known to vascular surgery with last visit 06/22/[address] Silverio. Given patient's significant PAD, he has risk of limb loss with gangrene. He has poor outflow from his distal bypass graft into his dorsalis pedis artery.
Revascularization with a jump bypass was recommended and patient agreed to this procedure. Today, patient underwent a left lower extremity jump bypass graft from below�knee popliteal artery to distal anterior tibial artery bypass graft. Estimated
blood loss was 200 cc with no complications, and he was transferred to the ICU postoperatively with Messaging Architect services consulted for additional management/recommendations.
Chronic conditions STAFF DEVELOPMENT NURSE: DM type II, hyperlipidemia, history of right leg bypass, PAD, plantar fasciitis
Impression:
#Critical limb ischemia s/p left lower extremity jump bypass graft from below�knee popliteal artery to distal anterior tibial artery bypass graft (POD #1)
#Leukocytosis likely reactive - WBC now normal as of 07/10
#Mild hyperkalemia - now normalized as of 07/10
#DM type II complicated by hyperglycemia
#Hyperlipidemia
#PAD with history of right leg bypass
Plan:
Postoperative surgical intensive care unit monitoring
Supplemental oxygen as needed to maintain SpO2 >90-94%
prn nebulized bronchodilators
Incentive spirometry encouraged 10x per hour for at least 4 hrs a day
Aspiration precautions
Pain control
Neuro and vascular checks per protocol
Maintain MAP>65
Replete electrolytes with K>4, Mg>2
Maintain euglycemia with goal BG 140-180; HbA1c: 7.9 from 07/10/2024
Diabetic DIRECTOR MEDICARE SALES on board � continue with basal�bolus insulin SQ medications + farxiga
Vascular surgery following-correspondence and operative notes reviewed
Transfuse blood products as needed to keep Hb>7g/dL, and plt>50k (given post-operative status)
DVT prophylaxis: HSQ
Early nutrition
Early mobilization
Continue ICU level care per vascular surgery as he still requires q1hr neurovascular checks until later today. Once transferred to telemetry or being prepared for discharge home, then we will sign off at that time.
Critical care statement: A total of 38 minutes of critical care time was provided for this patient today. This includes management of unstable vital signs, evaluation of the patient at bedside, reviewing the patient's pertinent medical records
including radiographs, microbiology, laboratory evaluations, and discussion with primary team, consultants, pharmacy, nutrition, physical therapy, case management, charge nurse, critical care nursing, and respiratory therapy.
Subjective Dataa
Subjective Data
Date of Service:
Date of Service: July 10, 2024
Chief Complaint: Messaging Architect Follow Up
Subjective:
Patient was seen and evaluated this morning. Sitting in chair in no acute distress. Heart rate 97, saturating 97% on room air and BP 172/86. No acute events reported overnight. Also denies groin pain, lower extremity numbness, tingling or
weakness.
Review of Systems
General: Other (Negative unless mentioned above)
Objective Data
Data Reviewed
Vital Signs / I&O / Oxygen:
Vital Signs
Temp Pulse Resp BP Pulse Ox
97.9 F 111 19 142/99 95
07/10/24 08:00 07/10/24 08:58 07/10/24 06:00 07/10/24 08:58 07/10/24 06:00
Intake and Output
07/09/24 07/10/24 07/11/24
06:59 06:59 06:59
Intake Total 2079
Output Total 2604
Balance -525 / -525
SaO2 95
Physical Exam
General: Respiratory Distress (negative), Comfortable, Chills (negative) and Sweats (negative)
HEENT: Normocephalic and Anicteric
Cardiovascular: S1-S2, Rub (negative) and Peripheral Edema (negative)
Respiratory: Wheeze (negative), Crackles (negative), Rhonchi (negative) and Non-Labored Respirations
GI: Soft, Non Distended, Non Tender and Normal Bowel Sounds
Neurology: AO x 3 and Tremors (negative)
Skin: Warm, Dry, Cyanosis (negative), Jaundice (negative), Other (Dressing on right upper extremity with slow oozing of blood from medial RUE) and Other (Bandage along anterior left lower extremity)
Labs/Micro/Reports
Lab Data
07/10/24 03:21
07/10/24 03:21
Laboratory Results
07/10/24
03:21
PT 14.4
INR 1.09
APTT 27.1
--- NOTE | 2024-07-10 08:31 | PN.DE.MGMTRT ---
Insulin Management
- -
07/10/2024: Diabetes Management Consult
68 year old male with PMH: PAD, DM type II, HLD and plantar fasciitis, who presents for elective LLE revascularization. Given patient's significant PAD, he has risk of limb loss with gangrene. Patient underwent a LLE jump bypass graft from
below�knee popliteal artery to distal anterior tibial artery bypass graft yesterday and was transferred to the ICU postoperatively for close monitoring.
He was taking Lantus 40-45 units, lispro SS 20-40 units AC and metformin 1000 mg BID prior to admission. He sees an Endo Dr. Burks in [place] for diabetes care and uses a CGM- Alejandra for glucose monitoring at home. Current A1C is 7.9%, states it
was around 6% 2 months ago. Cr 0.6, eGFR >60
Current diabetes regimen includes: Lantus 40 units, Metformin 1000mg BID and high corrective insulin only.
He is noted for persistent Hyperglycemia, he states that his glucose trended up to 300 last night. His POC HS glucose was 316, pt received 40 units of Lantus @ HS, glucose improved to 225 @2 AM. FBG was 234 V, 232 POC this AM. Will increase Lantus
to 45 units @ HS
Will start AC NovoLog 20 units and change from high corrective to moderate corrective insulin with meals
Cont Farxiga 10mg daily. Will cont to follow and make further insulin adjustments if necessary.
Diabetes History
- -
Type of Diabetes: 2 requiring insulin
Pre-Admission Diabetes Regimen
07/09/24 07/10/24
15:25 03:21
Creatinine 0.7 0.6 L
Insulin Pump Settings
IP Diabetes Regimen
07/09/24 07/09/24 07/09/24
08:32 11:12 13:49
Glucose
POC Glucose 187 H 174 H 205 H
07/09/24 07/09/24 07/09/24
15:23 15:25 17:03
Glucose 241 H
POC Glucose 151 H 264 H
07/09/24 07/09/24 07/10/24
17:41 21:00 02:02
Glucose
POC Glucose 257 H 316 H 225 H
07/10/24 07/10/24
03:21 07:55
Glucose 234 H
POC Glucose 232 H
Meal type: Dinner
Amount consumed: 100%
Patient Education
[2024-07-10] MEDS: ZESTRIL 10 MG PO (08:58)
[2024-07-10] MEDS: NEURONTIN 300 MG PO ×3 (08:58→21:02)
[2024-07-10] MEDS: HEPARIN 5000 UNITS SC ×2 (08:58→19:43)
[2024-07-10] MEDS: LIPITOR 80 MG PO (08:58)
[2024-07-10] MEDS: VITAMIN C 500 MG PO ×2 (08:58→19:42)
[2024-07-10] MEDS: TOPROL XL 25 MG PO (08:58)
[2024-07-10] MEDS: GLUCOPHAGE 1000 MG PO ×2 (08:58→16:37)
[2024-07-10] MEDS: ZETIA 10 MG PO (08:58)
[2024-07-10] MEDS: PROTONIX 40 MG PO (09:09)
[2024-07-10] MEDS: FARXIGA 10 MG PO (10:06)
[2024-07-10] MEDS: NOVOLOG FLEXPEN 10 UNITS SC ×2 (10:06→12:22)
[2024-07-10 10:17] LABS: Glycohemoglobin (HgbA1c) 7.9 % (4.0-5.6)
--- NOTE | 2024-07-10 12:12 | PTCARENOTE ---
Reassessed the patient, discontinued Left radial art line and Gleason, able to ambulate with x1 person assistance.
[2024-07-10 12:13] LABS: Glucose - Point of Care 266 mg/dl (70-99)
[2024-07-10] MEDS: NOVOLOG FLEXPEN-MODERATE RESISTANCE 5 UNITS SC (12:26)
[2024-07-10] MEDS: ZINC 50 MG PO (12:27)
[2024-07-10] MEDS: LOW STRENGTH ASPIRIN 81 MG PO (12:27)
--- NOTE | 2024-07-10 12:35 | WOUNDNOTE ---
[facility] RN note: Patient admitted for multiple left leg bypass surgeries this hospitalization
See H&P for complete history.
PMH: PVD, colon CA, osteomyelitis with multiple toe amputations, IDDM
Wound Location and type/assessment: Patient admitted with chronic left toe wound with bone exposed. No drainage noted from wound. Left heel with dry, flakey skin. Patient report dry skin is not new and associate director of development told him not to touch it. Patient
reports he follows with a associate director of development and will continue to follow up after vascular surgery. Heels and sacrum intact
Appetite: Good
Pressure redistribution devices in place: Centrella Max Air, air cushion, heels off-loaded when in bed
Plan: Betadine daily to left great toe and foam to left heel. Patient should follow up with his associate director of development as an outpatient. Will confirm orders with hospitalist and update nurse. Updated care plan and will follow as needed.
Note to case management of equipment requested for discharge:
Recommend follow up at wound care center upon discharge.
--- NOTE | 2024-07-10 12:35 | WOUNDNOTE ---
[facility] RN note: Patient admitted for multiple left leg bypass surgeries this hospitalization
See H&P for complete history.
PMH: PVD, colon CA, osteomyelitis with multiple toe amputations, IDDM
Wound Location and type/assessment: Patient admitted with chronic left toe wound with bone exposed. No drainage noted from wound. Patient reports he follows with a ocean lifeguard and will continue to follow up after vascular surgery. Heels and sacrum
intact
Appetite: Good
Pressure redistribution devices in place: Centrella Max Air, air cushion, heels off-loaded when in bed
Plan: Betadine daily to left great toe. Patient should follow up with his ocean lifeguard as an outpatient. Will confirm orders with hospitalist and update nurse. Updated care plan and will follow as needed.
Note to case management of equipment requested for discharge:
Recommend follow up at wound care center upon discharge.
--- NOTE | 2024-07-10 13:29 | WOUNDNOTE ---
LEFT SECOND TOE
--- NOTE | 2024-07-10 15:15 | CM ---
Initial assessment completed with patient who lives with his friend, Tevin Banda (female), in a single story home in a half-way community with 1 step to enter. KITCHEN AIDE patient was independent and drove. He did not have in-home services. [facility] He has an accu-check machine, rolling walker and a SPC. He does not use the assistive devices. No history of psychiatric hospitalizations. Patient does not want any in-home services after discharge. He can manage his
dressing changes as he has in the past and Tevin will assist if needed. PCP is Oscar cisse Epps and Pharmacy is [facility].
--- NOTE | 2024-07-10 16:12 | PTCARENOTE ---
Reassessed the patient, no new drainage seen in RUE and LLE dressings, now RUE and LLE neuro checks are Q4hr. Diabetic provider readjusted insulin dose.
[2024-07-10 16:36] LABS: Glucose - Point of Care 128 mg/dl (70-99)
[2024-07-10] MEDS: NOVOLOG FLEXPEN 20 UNITS SC (16:36)
[2024-07-10] MEDS: NOVOLOG FLEXPEN-MODERATE RESISTANCE SC (16:38)
--- NOTE | 2024-07-10 20:56 | PTCARENOTE ---
Received pt from previous RN. Pt is AAOx3, neurovascular checks Q4 (see worklist). Pt is NSR w/ PVCs on the monitor, sinus tach with activity. Pt on RA O2 sat 93%, lungs clear. Pt assisted to the BR x1 assist. LLE rosalva drains in place, old drainage
on the dressing. Mouth care provided. Call doran in reach. Safe environment maintained.
[2024-07-10] MEDS: LANTUS 0.45 UNITS SC (21:02)
[2024-07-10 21:14] LABS: Glucose - Point of Care 93 mg/dl (70-99)
[2024-07-11] VITALS (22 sets, daily range): BP systolic 100–150; BP diastolic 56–111; PULSE 91; BMI 30.9
--- NOTE | 2024-07-11 00:35 | PTCARENOTE ---
Systems reviewed, no new changes in assessment. Neurovascular check complete (see worklist). Call doran in reach. Safe environment maintained.
[2024-07-11 04:13] LABS: Blood Urea Nitrogen 19 mg/dl (9-20); Calcium 8.9 mg/dl (8.4-10.2); Carbon Dioxide 24 mmol/L (22-30); Chloride 112 mmol/L (98-107); Estimated Creatinine Clearance 110 ml/min; Glucose 82 mg/dl (70-99); Magnesium 2.2 mg/dl (1.6-2.3); Potassium 4.4 mmol/L (3.5-5.1); Sodium 141 mmol/L (135-145); eGFR > 60.00
--- NOTE | 2024-07-11 04:53 | PTCARENOTE ---
Systems reviewed, no new changes in assessment. Call doran in reach. Safe environment maintained.
[2024-07-11] MEDS: VITAMIN C 500 MG PO ×2 (07:25→21:13)
[2024-07-11] MEDS: ZETIA 10 MG PO (07:25)
[2024-07-11] MEDS: GLUCOPHAGE 1000 MG PO ×2 (07:25→16:21)
[2024-07-11] MEDS: NEURONTIN 300 MG PO ×3 (07:26→21:12)
[2024-07-11] MEDS: LIPITOR 80 MG PO (07:26)
[2024-07-11] MEDS: ZESTRIL 10 MG PO (07:26)
[2024-07-11] MEDS: FARXIGA 10 MG PO (07:26)
[2024-07-11] MEDS: PROTONIX 40 MG PO (07:26)
[2024-07-11] MEDS: TOPROL XL 25 MG PO (07:26)
[2024-07-11] MEDS: HEPARIN 5000 UNITS SC ×2 (07:27→21:13)
[2024-07-11] MEDS: NOVOLOG FLEXPEN-MODERATE RESISTANCE SC ×3 (07:38→17:48)
[2024-07-11 07:42] LABS: Glucose - Point of Care 91 mg/dl (70-99)
--- NOTE | 2024-07-11 07:59 | W.PN.VS ---
Addendum entered and electronically signed by Anand Silverio MD 07/11/24 15:29:
Seen and examined with ADELA Hall. Agree with findings and plan as noted below. Left lower extremity dressings are clean dry intact. No obvious hematomas. Thigh and calf soft. Good graft function with palpable graft pulse. Plan/as discussed and
noted below.
Original Note:
Today's Communication / Plan
-
Patient seen and evaluated at bedside with Dr. Anand Silverio M.D., below plan reviewed with attending.
Assessment/Plan
-
Assessment: 69-year-old male POD #2 Exposure of left lower extremity below the knee popliteal artery and proximal anterior tibial artery, left lower extremity jump bypass from left below the knee popliteal artery to distal anterior tibial artery
bypass graft using right upper extremity harvested basilic vein reversed conduit, dissection through scarred tissue distal lateral left calf
Plan:
PT consultation
Appreciate insulin management by diabetic nurse practitioner
Continue neurovascular checks
Will initiate [facility]ass protocol of Xarelto 2.5 mg p.o. twice daily and aspirin 81 mg p.o. twice daily once patient is evaluated by podiatry and aware of their surgical plan, podiatry evaluation pending
Patient stable for downgrade to telemetry
DVT prophylaxis
GI prophylaxis
Subjective Data
-
Date of Service: July 11, 2024
Patient seen and examined at chair side, offers no complaints. Reports well-managed postoperative pain. Reports no difficulty with ambulation from bed to chair or bathroom. Denies nausea, vomiting, fever, and chills.
Objective Data
-
Vital Signs
Temp Pulse Resp BP Pulse Ox
98.3 F 89 16 139/64 98
07/11/24 07:46 07/11/24 07:26 07/11/24 07:00 07/11/24 07:26 07/11/24 06:00
Intake and Output
07/10/24 07/11/24 07/12/24
06:59 06:59 06:59
Intake Total 2080 / 2160 1470 / 1470
Output Total 2605 / 2755 750 / 750
Balance -525 / -595 720 / 720
Intake:
Oral fluids 960 / 960 1270 / 1270
IV fluids (Total) 1120 / 1200 200 / 200
Nss 1,000 ml @ 80 mls/hr IV . 1120 / 1200 200 / 200
[id number] MIKE Rx#:[id number]
Output:
Urine, Gleason 2605 / 2755 500 / 500
Urine, Voided 250 / 250
Other:
Number of approximated SMALL 1
amounts of urine
Number of approximated MODERATE 1
amounts of urine
Lab Results
07/11/24 07:14
Calcium Cancelled 07/11/24 07:14
Magnesium 2.2 mg/dl (1.6-2.3) 07/11/24 03:40
Physical Exam
-
No apparent distress, resting in bed comfortably
No tachycardia
No dyspnea on room air
ABD rotund, nondistended, nontender
Right upper extremity vein harvest site CDI, no evidence of hematoma, suture line approximated and Exofin glue intact
Left lower extremity with scant edema, foot warm, excellent DP and PT Doppler signal, calf rosalva dressing x 2 dry and intact, all compartments soft, no evidence of hematoma, moderate staining to distal rosalva dressing unchanged from postop
Bilateral feet warm, palpable left foot DP and bypass pulse
[2024-07-11] MEDS: NOVOLOG FLEXPEN 20 UNITS SC (08:08)
--- NOTE | 2024-07-11 08:11 | W.PN.INTV ---
Today's Communication / Plan
Recommendations
Pain control
Up OOB as tolerated
Encourage incentive spirometer q1hr while awake
Keep SpO2 >90-94%
Trend H&H and keep >7 g/dL; plt>50k
Neurovascular checks per vascular surgery
Patient is stable for downgrade out of ICU to telemetry. No additional recommendations at this time. Change Management/Pulmonary service will now sign off. Please reconsult if there are any additional questions/concerns, or if patient's respiratory
status deteriorates.
Assessment
-
Assessment: 69-year-old male with a past medical history of PAD, DM type II, hyperlipidemia and plantar fasciitis who presents for elective left lower extremity jump bypass graft from below�knee popliteal artery to distal anterior tibial artery
bypass graft. Patient known to vascular surgery with last visit 06/22/[address] Silverio. Given patient's significant PAD, he has risk of limb loss with gangrene. He has poor outflow from his distal bypass graft into his dorsalis pedis artery.
Revascularization with a jump bypass was recommended and patient agreed to this procedure. Today, patient underwent a left lower extremity jump bypass graft from below�knee popliteal artery to distal anterior tibial artery bypass graft. Estimated
blood loss was 200 cc with no complications, and he was transferred to the ICU postoperatively with Change Management services consulted for additional management/recommendations.
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
Impression:
#Critical limb ischemia s/p left lower extremity jump bypass graft from below�knee popliteal artery to distal anterior tibial artery bypass graft (POD #2)
#Leukocytosis likely reactive
#Mild hyperkalemia - now normalized as of 07/10
#DM type II complicated by hyperglycemia - now euglycemic
#Hyperlipidemia
#PAD with history of right leg bypass
Plan:
Postoperative surgical intensive care unit monitoring
Supplemental oxygen as needed to maintain SpO2 >90-94%
prn nebulized bronchodilators � not currently bronchospastic
Incentive spirometry encouraged 10x per hour for at least 4 hrs a day
Aspiration precautions
Pain control
Neuro and vascular checks per protocol
Maintain MAP>65
Replete electrolytes with K>4, Mg>2
Maintain euglycemia with goal BG 140-180; HbA1c: 7.9 from 07/10/2024
Diabetic FITNESS AND WELLNESS COORDINATOR on board � continue with basal�bolus insulin SQ medications + farxiga
Vascular surgery following-correspondence and operative notes reviewed
Transfuse blood products as needed to keep Hb>7g/dL, and plt>50k (given post-operative status)
DVT prophylaxis: HSQ
Early nutrition
Early mobilization
Patient is stable for downgrade out of ICU to telemetry. No additional recommendations at this time. Change Management/Pulmonary service will now sign off. Thank you for allowing us to be involved in the care of this patient. Please reconsult if there
are any additional questions/concerns, or if patient's respiratory status deteriorates.
Total time spent today was 58 minutes for this encounter. Time includes reviewing laboratory test/imaging results, reviewing pertinent medical records, obtaining and reviewing medical history, performing an appropriate exam, ordering medications,
tests and procedures. Time also includes documentation of this encounter, coordinating patient care and communicating with other healthcare professionals. Total time does not include separately billed tests performed on this date of service.
Subjective Dataa
Subjective Data
Date of Service:
Date of Service: July 11, 2024
Chief Complaint: Change Management Follow Up
Subjective:
Patient was seen and evaluated today at bedside. Denies shortness of breath or chest pain. Able to walk around with no leg pain or shortness of breath. Currently, heart rate 75, BP 105/70 and saturating 95% on room air.
Review of Systems
General: Other (Negative unless mentioned above)
Objective Data
Data Reviewed
Vital Signs / I&O / Oxygen:
Vital Signs
Temp Pulse Resp BP Pulse Ox
98.3 F 92 18 126/72 95
07/11/24 07:46 07/11/24 08:10 07/11/24 08:10 07/11/24 08:10 07/11/24 09:31
Intake and Output
07/10/24 07/11/24 07/12/24
06:59 06:59 06:59
Intake Total 2080 / 2160 1470 / 1470 240 / 240
Output Total 2605 / 2755 750 / 750
Balance -525 / -595 720 / 720 240 / 240
SaO2 95
Physical Exam
General: Respiratory Distress (negative), Comfortable, Chills (negative) and Sweats (negative)
HEENT: Normocephalic and Anicteric
Cardiovascular: S1-S2, Rub (negative) and Peripheral Edema (negative)
Respiratory: Clear, Wheeze (negative), Crackles (negative), Rhonchi (negative) and Non-Labored Respirations
GI: Soft, Non Distended, Non Tender and Normal Bowel Sounds
Neurology: AO x 3 and Tremors (negative)
Skin: Warm, Dry, Cyanosis (negative), Jaundice (negative), Other (Dressing on right upper extremity) and Other (Bandage along anterior left lower extremity; left great toe amputation and left second toe necrotic wound on distal tip of digit with
bone exposed)
Labs/Micro/Reports
Lab Data
07/11/24 07:14
--- NOTE | 2024-07-11 09:31 | PTCARENOTE ---
Patient downgraded from ICU.
--- NOTE | 2024-07-11 10:30 | PN.DE.MGMTRT ---
Insulin Management
- -
07/11/2024: Diabetes Management Follow up
69 year old male with PMH: PAD, T2DM, HLD and plantar fasciitis, who presents for elective LLE revascularization. Given patient's significant PAD, he has risk of limb loss with gangrene. Patient underwent a LLE jump bypass graft from [facility]
popliteal artery to distal anterior tibial artery bypass graft yesterday and was transferred to the ICU postoperatively for close monitoring.
He was taking Lantus 40-45 units, lispro SS 20-40 units AC and metformin 1000 mg BID prior to admission. He sees an Endo Dr. Burks in [place] for diabetes care and uses a CGM- Alejandra for glucose monitoring at home. Current A1C is 7.9%, states it
was around 6% 2 months ago. Cr 0.6, eGFR >60
Pt awake, alert, oriented, sitting up in chair, offers no complaints, able to discuss diabetes care plan.
07/10 pre-lunch blood sugar was 266 AC insulin dose was increased to 20 units at dinner.
HS glucose improved to 93, pt received Lantus 45 units, FBG 82V, 91 POC this AM. Will reduce Lantus dose to 42 units.
Pre-lunch blood sugar today was 73, will reduce NovoLog to 10 units AC.
Cont Farxiga 10mg daily, Metformin 1000 mg BID and moderate corrective insulin with meals
Will cont to follow and make further insulin adjustments if necessary.
Diabetes History
- -
Type of Diabetes: 2 requiring insulin
Pre-Admission Diabetes Regimen
07/11/24 07/11/24
03:40 07:14
Creatinine 0.7 Cancelled
Lab Results
Hemoglobin A1c 7.9 % (4.0-5.6) H 07/10/24 03:21
Insulin Pump Settings
IP Diabetes Regimen
07/10/24 07/10/24 07/10/24
11:59 16:24 21:02
Glucose
POC Glucose 266 H 128 H 93
07/11/24 07/11/24 07/11/24
03:40 07:14 07:37
Glucose 82 Cancelled
POC Glucose 91
Meal type: Breakfast
Amount consumed: 100%
Patient Education
[2024-07-11 11:58] LABS: Hematocrit 42.9 % (39.0-52.0); Hemoglobin 14.2 g/dL (13.0-18.0); Mean Corp Hgb Conc. 33.1 g/dL (33.0-37.0); Mean Corpuscular Hgb 28.2 pg (27.0-31.0); Mean Corpuscular Volume 85.3 fL (80.0-94.0); Mean Platelet Volume 9.1 fL (7.4-10.4); Platelet Count 273 10^3/uL (130-400); Red Blood Cell Count 5.03 10^6/uL (4.70-6.10); Red Cell Dist. Width 14.6 % (11.5-14.5); White Blood Cell Count 12.5 10^3/uL (4.8-10.8)
[2024-07-11] MEDS: ZINC 50 MG PO (12:23)
[2024-07-11] MEDS: LOW STRENGTH ASPIRIN 81 MG PO (12:23)
[2024-07-11] MEDS: NOVOLOG FLEXPEN SC (12:30)
[2024-07-11 12:42] LABS: Glucose - Point of Care 73 mg/dl (70-99)
[2024-07-11] MEDS: NOVOLOG FLEXPEN 10 UNITS SC ×2 (13:51→18:34)
--- NOTE | 2024-07-11 15:14 | CM ---
Discharge POC: PT recommendation for HH PT. WiIl discuss with patient and offer HH options.
--- NOTE | 2024-07-11 17:39 | W.CS.POD ---
Consult Summary - Podiatry
-
69 yo diabetic male with h/o PAD and multiple digital amputations known to me for very long time in my practice, Developed LT 2nd distal toe ulceration which was non healing, after evaluation by vascular surgery, Dr. Silverio, had LT L/E Left lower
extremity jump bypass from left below the knee popliteal artery to distal anterior tibial artery on 07/09/2024, he is doing well, walking slowly and denies ny pain in Lr lower leg, no fever, chills
LT foot pink, warm
LT 2nd distal toe with exposed bone
Exam : LT foot pink, warm, well perfused
LT 2nd distal toe with exposed bone, distal phalanx/tuft, has no drainage, minimal erythema noted, no dusky discoloration, no foul odor, no necrosis
recent Xays reviewed
A/p: LT 2nd toe osteomyelitis
PAD - Left lower extremity jump bypass from left below the knee popliteal artery to distal anterior tibial artery 07/09/2024
D/W Dr. Silverio, ok to proceed with toe amputation
Discussed with patient about the partial toe amputation plan, explained all risks and complications, no guarantees given to the outcome. risks of non healing, reinfection, non healing, more surgeries, loosing the limb discussed
Patient understands and agrees to proceed with the plan
Surgical clearance by vascular surgery in AM
Will schedule pt for partial Lt 2nd toe amputation around noon time
Podiatry will follow
[2024-07-11 17:51] LABS: Glucose - Point of Care 72 mg/dl (70-99)
[2024-07-11 21:09] LABS: Glucose - Point of Care 90 mg/dl (70-99)
[2024-07-11] MEDS: LANTUS SC (22:51)
[2024-07-12] VITALS (11 sets, daily range): BP systolic 100–143; BP diastolic 55–85
[2024-07-12 06:51] LABS: Blood Urea Nitrogen 19 mg/dl (9-20); Calcium 8.6 mg/dl (8.4-10.2); Carbon Dioxide 27 mmol/L (22-30); Chloride 109 mmol/L (98-107); Estimated Creatinine Clearance 110 ml/min; Glucose 85 mg/dl (70-99); Potassium 4.2 mmol/L (3.5-5.1); Sodium 141 mmol/L (135-145); eGFR > 60.00
[2024-07-12 07:22] LABS: Hematocrit 35.3 % (39.0-52.0); Hemoglobin 12.3 g/dL (13.0-18.0); Mean Corp Hgb Conc. 34.8 g/dL (33.0-37.0); Mean Corpuscular Hgb 29.3 pg (27.0-31.0); Mean Platelet Volume 8.9 fL (7.4-10.4); Platelet Count 201 10^3/uL (130-400); Red Cell Dist. Width 14.6 % (11.5-14.5); White Blood Cell Count 7.6 10^3/uL (4.8-10.8)
--- NOTE | 2024-07-12 07:29 | W.PN.VS ---
Today's Communication / Plan
-
See plan below for today 07/12/2024.
Assessment/Plan
-
Assessment: 69-year-old male POD #3 Exposure of left lower extremity below the knee popliteal artery and proximal anterior tibial artery, left lower extremity jump bypass from left below the knee popliteal artery to distal anterior tibial artery
bypass graft using right upper extremity harvested basilic vein reversed conduit, dissection through scarred tissue distal lateral left calf
Plan:
Discussed with Dr. Rm. Plan for toe amputation/partial toe amputation today. He is stable from a surgical/medical standpoint to proceed with toe amputation today. Hopefully discharge tomorrow.
-
Total Time Spent with Patient (in minutes): 10
Subjective Data
-
Date of Service: July 12, 2024
Seen and examined. He is without complaints this morning.
Objective Data
-
Vital Signs
Temp Pulse Resp BP Pulse Ox
98.8 F 84 18 103/85 96
07/12/24 03:03 07/12/24 03:03 07/12/24 03:03 07/12/24 03:03 07/12/24 03:03
Intake and Output
07/11/24 07/12/24 07/13/24
06:59 06:59 06:59
Intake Total 1470 / 1470 780 / 780
Output Total 750 / 750 350 / 350
Balance 720 / 720 430 / 430
Intake:
Oral fluids 1270 / 1270 780 / 780
IV fluids (Total) 200 / 200
Nss 1,000 ml @ 80 mls/hr IV . 200 / 200
[id number] MIKE Rx#:[id number]
Output:
Urine, Gleason 500 / 500
Urine, Voided 250 / 250 350 / 350
Other:
Number of approximated SMALL 1
amounts of urine
Number of approximated MODERATE 1
amounts of urine
Lab Results
07/12/24 06:04
07/12/24 06:04
Calcium 8.6 mg/dl (8.4-10.2) 07/12/24 06:04
Magnesium 2.2 mg/dl (1.6-2.3) 07/11/24 03:40
Physical Exam
-
He is awake and alert. No acute distress. Breathing unlabored. Left lower extremity dressings with old blood staining, but are otherwise clean dry and intact. Thigh and calf are soft. Right upper extremity incision is clean dry and intact. No
hematoma. Excellent graft function with palpable graft pulse at the ankle/foot.
[2024-07-12 07:39] LABS: Glucose - Point of Care 115 mg/dl (70-99)
[2024-07-12] MEDS: NOVOLOG FLEXPEN-MODERATE RESISTANCE SC ×2 (08:09→11:45)
--- NOTE | 2024-07-12 08:21 | PN.DE.MGMTRT ---
Insulin Management
- -
07/12/2024: Diabetes Management Follow up
69 year old male with PMH: PAD, T2DM, HLD and plantar fasciitis, who presents for elective LLE revascularization. Given patient's significant PAD, he has risk of limb loss with gangrene. Patient underwent a LLE jump bypass graft from [facility]
popliteal artery to distal anterior tibial artery bypass graft yesterday and was transferred to the ICU postoperatively for close monitoring.
He was taking Lantus 40-45 units, lispro SS 20-40 units AC and metformin 1000 mg BID prior to admission. He sees an Endo Dr. Burks in [place] for diabetes care and uses a CGM- Alejandra for glucose monitoring at home. Current A1C is 7.9%, states it
was around 6% 2 months ago. Cr 0.6, eGFR >60
Pt awake, alert, oriented, sitting up in chair, offers no complaints, able to discuss diabetes care plan.
07/11 glucose stable and in range, pre-meal 72 to 91. Pt was NPO after MN for OR today. HS glucose down to 90, Lantus dose held last night, FBG 85 V, 115 POC.
Will cont AC NovoLog 10 units, Lantus 42 units @ HS, Farxiga 10mg daily, Metformin 1000 mg BID and moderate corrective insulin with meals
Will reassess after procedure and adjust insulin dose if necessary. Will cont to follow.
Diabetes History
- -
Type of Diabetes: 2 requiring insulin
Pre-Admission Diabetes Regimen
07/12/24
06:04
Creatinine 0.7
Lab Results
Hemoglobin A1c 7.9 % (4.0-5.6) H 07/10/24 03:21
Insulin Pump Settings
IP Diabetes Regimen
07/11/24 07/11/24 07/11/24
12:28 17:46 21:07
Glucose
POC Glucose 73 72 90
07/12/24 07/12/24
06:04 07:37
Glucose 85
POC Glucose 115 H
Meal type: Dinner
Amount consumed: 100%
Patient Education
[2024-07-12] MEDS: HEPARIN 5000 UNITS SC ×2 (08:26→21:10)
[2024-07-12] MEDS: ZETIA 10 MG PO (08:28)
[2024-07-12] MEDS: NOVOLOG FLEXPEN SC ×2 (08:28→11:43)
[2024-07-12] MEDS: VITAMIN C PO (08:29)
[2024-07-12] MEDS: ZESTRIL 10 MG PO (08:29)
[2024-07-12] MEDS: TOPROL XL 25 MG PO (08:29)
[2024-07-12] MEDS: NEURONTIN 300 MG PO ×3 (08:30→21:10)
[2024-07-12] MEDS: LIPITOR 80 MG PO (08:30)
[2024-07-12] MEDS: PROTONIX 40 MG PO (08:30)
[2024-07-12 11:38] LABS: Glucose - Point of Care 143 mg/dl (70-99)
[2024-07-12] MEDS: ZINC PO (11:46)
[2024-07-12 12:40] LABS: Glucose - Point of Care 108 mg/dl (70-99)
--- NOTE | 2024-07-12 12:50 | W.SUR.POST ---
Addendum entered and electronically signed by Leisa Rm DPM 07/13/24 16:56:
Pre op diagnosis : LT 2nd toe chronic osteomyelitis with exposed distal phalanx
Original Note:
Surgical Immediate Post Op
Note
Pre Op Diagnosis: left 2nd toe osteomyelitis with exposed distal phalanx
Post Op Diagnosis: Same as above
Procedure Performed: Left 2nd distal toe amputation with primary closure
Primary Surgeon: Dr. Jag PAYTON
Secondary Surgeons: None
Anesthesia: Mac with local block
Estimated Blood Loss: 3 cc's
Fluids: None
Drains/Shunts: None
Specimens/Cultures: LT 2nd distal toe sent for pathology
Doppler/Duplex/Angio (Y/N): N
Complications: None
Operative Findings: healthy bleeding noted form the surgical flaps. No deep tissue necrosis
Patient stable in PACU with intact vascular status to Lt foot and stable vital signs
--- NOTE | 2024-07-12 15:00 | PTCARENOTE ---
pt returned to floor ~1400, Kerlix wrap intact on left foot, some strike thru on dressing. pt AO ordering lunch. pt NWB for today then partiel for 07/13. pt is stating is intending to be non compliant with NWB to left instructions despite nurse
repeating reason why. left pt in bed HOB , call doran in place
[2024-07-12 17:12] LABS: Glucose - Point of Care 237 mg/dl (70-99)
--- NOTE | 2024-07-12 17:27 | PTCARENOTE ---
pt found in bathroom, no device, no assistance, was told he was NWB. and bedrest
[2024-07-12] MEDS: LOW STRENGTH ASPIRIN 81 MG PO (17:29)
[2024-07-12] MEDS: NOVOLOG FLEXPEN 10 UNITS SC (17:39)
[2024-07-12] MEDS: NOVOLOG FLEXPEN-MODERATE RESISTANCE 5 UNITS SC (17:39)
[2024-07-12 21:09] LABS: Glucose - Point of Care 230 mg/dl (70-99)
[2024-07-12] MEDS: VITAMIN C 500 MG PO (21:10)
[2024-07-12] MEDS: LANTUS 0.2 UNITS SC (21:23)
[2024-07-13 03:02] VITALS: BP 114/68
[2024-07-13 07:07] LABS: Hematocrit 36.4 % (39.0-52.0); Hemoglobin 12.1 g/dL (13.0-18.0); Mean Corp Hgb Conc. 33.2 g/dL (33.0-37.0); Mean Corpuscular Volume 84.3 fL (80.0-94.0); Mean Platelet Volume 9.5 fL (7.4-10.4); Platelet Count 239 10^3/uL (130-400); Red Blood Cell Count 4.32 10^6/uL (4.70-6.10); Red Cell Dist. Width 14.3 % (11.5-14.5); White Blood Cell Count 9.8 10^3/uL (4.8-10.8)
[2024-07-13 07:20] VITALS: BP 110/72
[2024-07-13 07:29] LABS: Glucose - Point of Care 167 mg/dl (70-99)
[2024-07-13 07:37] LABS: ALT (SGPT) 22 U/L (0-50); AST (SGOT) 25 U/L (17-59); Albumin 3.9 g/dl (3.5-5.0); Alkaline Phosphatase 73 U/L (38-126); Blood Urea Nitrogen 22 mg/dl (9-20); Calcium 8.7 mg/dl (8.4-10.2); Carbon Dioxide 22 mmol/L (22-30); Chloride 108 mmol/L (98-107); Estimated Creatinine Clearance 96 ml/min; Glucose 145 mg/dl (70-99); Potassium 4.7 mmol/L (3.5-5.1); Sodium 139 mmol/L (135-145); Total Bilirubin 1.2 mg/dl (0.2-1.3); Total Protein 6.2 g/dl (6.3-8.2); eGFR > 60.00
--- NOTE | 2024-07-13 07:58 | PN.DE.MGMTRT ---
Insulin Management
- -
07/13/2024: Diabetes Management Follow up
69 year old male with PMH: PAD, T2DM, HLD and plantar fasciitis, who presents for elective LLE revascularization. Given patient's significant PAD, he has risk of limb loss with gangrene. Patient underwent a LLE jump bypass graft from [facility]
popliteal artery to distal anterior tibial artery bypass graft yesterday and was transferred to the ICU postoperatively for close monitoring.
He was taking Lantus 40-45 units, lispro SS 20-40 units AC and metformin 1000 mg BID prior to admission. He sees an Endo Dr. Burks in [place] for diabetes care and uses a CGM- Alejandra for glucose monitoring at home. Current A1C is 7.9%, states it
was around 6% 2 months ago. Cr 0.6, eGFR >60
Pt awake, alert, oriented, sitting up in bed, offers no complaints, able to discuss diabetes care plan.
07/12 glucose stable and in range, pre-meal 108 to 143, pre-dinner glucose escalated up to 237, and up to 230 @ HS. pt received Lantus 20 units.
FBG 145 V, 167 POC this AM. Will make no changes to current regimen: AC NovoLog 10 units, Lantus 20 units @ HS, Farxiga 10mg daily, Metformin 1000 mg BID and moderate corrective insulin with meals
Will cont to follow and adjust insulin dose if necessary.
Diabetes History
- -
Type of Diabetes: 2 requiring insulin
Pre-Admission Diabetes Regimen
07/13/24
05:48
Creatinine 0.8
Lab Results
Hemoglobin A1c 7.9 % (4.0-5.6) H 07/10/24 03:21
Insulin Pump Settings
IP Diabetes Regimen
07/12/24 07/12/24 07/12/24
11:37 12:39 17:10
Glucose
POC Glucose 143 H 108 H 237 H
07/12/24 07/13/24 07/13/24
21:07 05:48 07:27
Glucose 145 H
POC Glucose 230 H 167 H
Meal type: Lunch
Meal type: Breakfast
Meal type: Breakfast
Amount consumed: 100%
Amount consumed: 0
Patient Education
--- NOTE | 2024-07-13 08:08 | W.PN.VS ---
Today's Communication / Plan
-
Seen and assessed with Dr. Silverio
Assessment/Plan
-
Assessment: 69-year-old male POD #4 Exposure of left lower extremity below the knee popliteal artery and proximal anterior tibial artery, left lower extremity jump bypass from left below the knee popliteal artery to distal anterior tibial artery
bypass graft using right upper extremity harvested basilic vein reversed conduit, dissection through scarred tissue distal lateral left calf
Postop day [address] Rm
Plan:
Discharge home today
Subjective Data
-
Date of Service: July 13, 2024
Patient seen at bedside this a.m. with Dr. Silverio. Patient requesting to go home as soon as possible. No events overnight.
Objective Data
-
Vital Signs
Temp Pulse Resp BP Pulse Ox
98.4 F 80 18 114/68 98
07/13/24 03:02 07/13/24 03:02 07/13/24 03:02 07/13/24 03:02 07/13/24 03:02
Intake and Output
07/12/24 07/13/24 07/14/24
06:59 06:59 06:59
Intake Total 780 / 780
Output Total 350 / 350 1300 / 1300
Balance 430 / 430 -1300 / -1300
Intake:
Oral fluids 780 / 780
Output:
Urine, Voided 350 / 350 1300 / 1300
Lab Results
07/13/24 05:48
07/13/24 05:48
Calcium 8.7 mg/dl (8.4-10.2) 07/13/24 05:48
Magnesium 2.2 mg/dl (1.6-2.3) 07/11/24 03:40
Total Bilirubin 1.2 mg/dl (0.2-1.3) 07/13/24 05:48
AST 25 U/L (17-59) 07/13/24 05:48
ALT 22 U/L (0-50) 07/13/24 05:48
Alkaline Phosphatase 73 U/L (38-126) 07/13/24 05:48
Total Protein 6.2 g/dl (6.3-8.2) L 07/13/24 05:48
Albumin 3.9 g/dl (3.5-5.0) 07/13/24 05:48
Physical Exam
-
No apparent distress, resting in bed comfortably
No tachycardia
No dyspnea on room air
ABD rotund, nondistended, nontender
Right upper extremity vein harvest site CDI, no evidence of hematoma, suture line approximated and Exofin glue intact
Left lower extremity with scant edema, foot warm, excellent DP and PT Doppler signal, calf rosalva dressing x 2 dry and intact, all compartments soft, no evidence of hematoma, moderate staining to distal rosalva dressing unchanged from postop
Bilateral feet warm, palpable left foot DP and bypass pulse
--- NOTE | 2024-07-13 08:43 | PN.CDI ---
CDI
- -
CDI:
Physician Documentation Request
Admit Date: 07/09/24 07:42
Dear Vascular Surgery,
Clinical Indicators:
Patient admitted with chronic limb ischemia to [facility]; s/p jump bypass to the left lower extremity popliteal to anterior tibial artery 07/09 & left second toe amputation 07/12.
07/09 Anesthesia Report, IVF: 1900 ml EBL: 200 ml
Hgb/Hct trend:
07/11/24 07/12/24 07/13/24
11:15 06:04 05:48
Hgb 14.2 12.3 L 12.1 L
Hct 42.9 35.3 L 36.4 L
Based on the above, could you clarify in the progress notes, the appropriate diagnosis, if significant, that supports the above abnormalities and additional evaluation, monitoring and/or treatment rendered:
Anemia, due to hemodilution and acute blood loss
Anemia, due hemodilution only
Other, please specify
Use of terms such as suspected, likely, concern for, or probable (associated with a specific diagnosis that is being evaluated, monitored, or treated as if it exists) are acceptable and can be coded in the inpatient setting, when documented at the
time of discharge.
Thank you,
CHIN Liang RN
CDI Specialist
available via tiger text
Please use your independent medical judgment in providing your response.
[2024-07-13] MEDS: NEURONTIN 300 MG PO (08:46)
[2024-07-13] MEDS: ZETIA 10 MG PO (08:46)
[2024-07-13] MEDS: PROTONIX 40 MG PO (08:46)
[2024-07-13] MEDS: LIPITOR 80 MG PO (08:46)
[2024-07-13] MEDS: ZESTRIL 10 MG PO (08:47)
[2024-07-13] MEDS: TOPROL XL 25 MG PO (08:47)
[2024-07-13] MEDS: VITAMIN C 500 MG PO (08:47)
[2024-07-13] MEDS: HEPARIN 5000 UNITS SC (08:47)
[2024-07-13] MEDS: NOVOLOG FLEXPEN 10 UNITS SC ×2 (08:48→11:48)
[2024-07-13] MEDS: NOVOLOG FLEXPEN-MODERATE RESISTANCE 1 UNITS SC ×2 (08:49→11:48)
--- NOTE | 2024-07-13 09:02 | PN.CDI ---
CDI
- -
CDI:
Physician Documentation Request
Admit Date: 07/09/24 07:42
Dear Doctor Jag,
Clinical Indicators:
Patient admitted with chronic limb ischemia to E; s/p jump bypass to the left lower extremity popliteal to anterior tibial artery 07/09.
07/12 OR: Left second toe amputation
07/12 Immediate Post Op note, 'left 2nd toe osteomyelitis with exposed distal phalanx '
Please clarify which of the following accurately represents the acuity of the left 2nd toe osteomyelitis:
Acute osteomyelitis
Chronic osteomyelitis
Other, please specify
Use of terms such as suspected, likely, concern for, or probable (associated with a specific diagnosis that is being evaluated, monitored, or treated as if it exists) are acceptable and can be coded in the inpatient setting, when documented at the
time of discharge.
Thank you,
CHIN Liang RN
CDI Specialist
available via tiger text
Please use your independent medical judgment in providing your response.
--- NOTE | 2024-07-13 10:01 | CM ---
CM following re: discharge planning.
Reviewed pt's chart, met with pt.
Discharge order noted, Pt is aware, expressed his agreement with discharge and he stated his partner phong will transport home. IMM reviewed, placed on chart, pt has a copy.
PT and POT evaluations noted - home PT/OT recommended. pt is aware, politely declined VN services stating has has been doing his own wound care and does not need VN services. CM explained the benefits of VN services and pt insisted not to have them.
D/C plan: home no after care VN needs. Partner Phong to transport.
--- NOTE | 2024-07-13 10:16 | W.DS.TRANS ---
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
-
Discharge Instructions:
Discharge Diagnosis/Procedures Left lower extremity arterial bypass
Diet As tolerated
Activity No strenuous activity
Driving Restrictions Not until seen by your Dr
Bathing Restrictions OK to Shower
Wound Care Clean dry Adaptic and gauze 4 x 4 daily to foot
site
Instructions:
Stand-Alone Forms: Vascular Surg Discharge Instr
Changes to Home Medications: No
Discharge Medications:
DC Medications w/original date entered in [employer]
aspirin 81 mg chewable tablet 81 mg PO NOON Blood clot prevention/tx 11/11/20
gabapentin 300 mg capsule 300 mg PO TID Neurological Condition 11/11/20
insulin lispro 100 unit/mL subcutaneous pen (Humalog KwikPen (U-100) Insulin) 40 units SC AC Diabetes 11/11/20
metoprolol succinate 25 mg tablet,extended release 24 hr 25 mg PO DAILY Heart disease/condition 11/11/20
insulin glargine 100 unit/mL (3 mL) subcutaneous pen (Lantus Solostar U-100 Insulin) 40 units SC HS Diabetes 12/22/20
cholecalciferol (vitamin D3) 50 mcg (2,000 unit) tablet 2,000 units PO NOON Supplement 12/24/20
lisinopril 10 mg tablet 10 mg PO DAILY Blood pressure 11/11/21
ascorbic acid (vitamin C) 500 mg tablet (Vitamin C) 500 mg PO BID Supplement 12/07/23
atorvastatin 80 mg tablet 80 mg PO DAILY High Cholesterol 12/07/23
ezetimibe 10 mg tablet 10 mg PO DAILY High Cholesterol 12/07/23
zinc acetate 50 mg (zinc) capsule 50 mg PO NOON Supplement 12/07/23
blood sugar diagnostic 05/16/24
pen needle, diabetic 29 gauge x 1/2' 05/16/24
metformin 1,000 mg tablet 1,000 mg PO BID Diabetes 07/09/24
Home Medication Changes
Pending Results: No
[2024-07-13 11:18] VITALS: BP 136/71
--- NOTE | 2024-07-13 11:29 | PTCARENOTE ---
Confirmed with Charlee Schroeder MOBILE APPLICATION DEVELOPER that patient can be discharged without Darco shoe as he has at home.
[2024-07-13 11:36] LABS: Glucose - Point of Care 165 mg/dl (70-99)
[2024-07-13] MEDS: LOW STRENGTH ASPIRIN 81 MG PO (11:49)
[2024-07-13] MEDS: ZINC 50 MG PO (11:49)
--- NOTE | 2024-07-16 07:31 | W.PN.UPDATE ---
Update Note
Progress Note Update
CDI:
Physician Documentation Request
Admit Date: 07/09/24 07:42
Clinical Indicators:
Patient admitted with chronic limb ischemia to [facility]; s/p jump bypass to the left lower extremity popliteal to anterior tibial artery 07/09 & left second toe amputation 07/12.
07/09 Anesthesia Report, IVF: 1900 ml EBL: 200 ml
Hgb/Hct trend:
07/11/24 07/12/24 07/13/24
11:15 06:04 05:48
Hgb 14.2 12.3 L 12.1 L
Hct 42.9 35.3 L 36.4 L
Based on the above, could you clarify in the progress notes, the appropriate diagnosis, if significant, that supports the above abnormalities and additional evaluation, monitoring and/or treatment rendered:
Anemia, due to hemodilution and acute blood loss likely d/t surgical procedure
== END 2024-07-13 14:01 | disposition home or self-care (01) | DRG 253 ==
LOC: 2 SOUTH 07:42
PROVIDERS: Nurse Practitioner; Nurse Practitioner Primary Care; ADMITTING PHYSICIAN Surgery Vascular Surgery; CONSULT PHYSICIAN Internal Medicine Critical Care Medicine; CONSULT PHYSICIAN Podiatrist Foot & Ankle Surgery; PRIMARYCARE PHYSICIAN Family Medicine
PROC: 041N09Q Bypass Left Popliteal Artery to Lower Extremity Artery with Autologous Venous Tissue, Open Approach (ICD-10-PCS; 2024-07-09)
PROC: 05BB0ZZ Excision of Right Basilic Vein, Open Approach (ICD-10-PCS; 2024-07-09)
PROC: 0Y6S0Z2 Detachment at Left 2nd Toe, Mid, Open Approach (ICD-10-PCS; 2024-07-12)
DX: E11.52 Type 2 diabetes mellitus with diabetic peripheral angiopathy with gangrene (principal); D62 Acute posthemorrhagic anemia; I70.262 Atherosclerosis of native arteries of extremities with gangrene, left leg; M86.672 Other chronic osteomyelitis, left ankle and foot; I10 Essential (primary) hypertension; D72.829 Elevated white blood cell count, unspecified; L97.529 Non-pressure chronic ulcer of other part of left foot with unspecified severity; E78.00 Pure hypercholesterolemia, unspecified; E87.5 Hyperkalemia; E11.69 Type 2 diabetes mellitus with other specified complication; E11.65 Type 2 diabetes mellitus with hyperglycemia; M72.2 Plantar fascial fibromatosis; Z95.828 Presence of other vascular implants and grafts; Z79.84 Long term (current) use of oral hypoglycemic drugs; Z79.4 Long term (current) use of insulin
CPT/HCPCS: 88304; 88305; 88311; 35500; 35571; 36415; 71046; 80048; 80053; 82962; 83036; 83735; 85025; 85027; 85610; 85730; 86850; 86900; 86901; 93005; 97162

== ENCOUNTER → 2024-08-13 08:07 | Outpatient (REF) | payer MEDICARE, OTHER, SELFPAY | LOC: RAD 08:07 | PROVIDERS: ATTENDING PHYSICIAN Surgery Vascular Surgery | DX: I73.9 Peripheral vascular disease, unspecified (principal) | CPT/HCPCS: 93922; 93925 ==

== ENCOUNTER → 2025-02-14 06:43 | Outpatient (REF) | payer MEDICARE, OTHER, SELFPAY | LOC: RAD 06:43 | PROVIDERS: ATTENDING PHYSICIAN Surgery Vascular Surgery; FAMILY PHYSICIAN Family Medicine | DX: I73.9 Peripheral vascular disease, unspecified (principal) | CPT/HCPCS: 93922; 93925 ==